=== PATIENT | female | born 1960 | race Caucasian/White ===

== ENCOUNTER 2018-09-30 15:11 | Observation (INO) | payer MEDICARE, OTHER ==
[~2018-09-30] VITALS: Ht 165.1 cm; Wt 90.9 kg
[~2018-09-30 15:11] MED LIST: ACET-2119 PO; CALC300T4 PO; CHOL10002 PO; FLUO20CA39 PO; FURO40TA4 PO; GABA-532 PO; HYDR-4353 PO; HYDR-4383 PO; LEVO175T7 PO; LISI40TA4 PO; METH1ADH4 TOP; MULT1TAB74 PO; NAPR500T6 PO; RISP4TAB2 PO
[2018-09-30 16:17] LABS: BASOPHILS # (AUTO) 0.1 X10'3 (0-0.2); BASOPHILS % (AUTO) 0.5 % (0-1); EOSINOPHILS # (AUTO) 0.1 X10'3 (0-0.9); EOSINOPHILS % (AUTO) 0.9 % (0-6); HEMATOCRIT 32.7 % (35.0-45.0); LYMPHOCYTES # (AUTO) 1.5 X10'3 (1.1-4.8); MEAN CORPUSCULAR HEMOGLOBIN 29.9 PG (27.0-31.0); MEAN CORPUSCULAR HGB CONC 33.7 g/dL (33.0-36.5); MEAN CORPUSCULAR VOLUME 88.7 FL (78-98); MEAN PLATELET VOLUME 7.2 FL (7.4-10.4); MONOCYTES # (AUTO) 1.1 X10'3 (0-0.9); MONOCYTES % (AUTO) 9.2 % (2-12); NEUTROPHILS # (AUTO) 9.6 X10'3 (1.8-7.7); NEUTROPHILS % (AUTO) 77.4 % (42-75); PLATELET COUNT 378 X10'3 (140-440); RED BLOOD COUNT 3.69 X10'6 (4.20-5.60); RED CELL DISTRIBUTION WIDTH 16.6 % (11.5-14.5); WHITE BLOOD COUNT 12.4 X10'3 (4.5-11.0)
[2018-09-30 16:37] LABS: ALANINE AMINOTRANSFERASE 29 U/L (12-78); ALBUMIN 2.9 G/DL (3.4-5.0); ALBUMIN/GLOBULIN RATIO 0.6 (1.1-1.5); ALKALINE PHOSPHATASE 196 IU/L (46-116); ANION GAP 7 (8-16); ASPARTATE AMINO TRANSFERASE 23 U/L (10-37); BILIRUBIN,TOTAL 0.5 MG/DL (0.1-1.0); BLOOD UREA NITROGEN 14 MG/DL (7-18); BUN/CREATININE RATIO 24.1 (6.6-38.0); CALCIUM 9.5 MG/DL (8.5-10.1); CHLORIDE 94 MMOL/L (99-107); CREATININE 0.58 MG/DL (0.40-0.90); GLUCOSE 119 MG/DL (70-104); POTASSIUM 3.3 MMOL/L (3.5-5.1); SODIUM 128 MMOL/L (135-145); TOTAL CARBON DIOXIDE 26.6 MMOL/L (24-32); TOTAL PROTEIN 7.6 G/DL (6.4-8.2); eGFR > 90 ML/MIN
[2018-09-30] MEDS ORDERED: potassium Cl oral solution 20 MEQ/15 ML PO ONE (16:55)
--- NOTE | 2018-09-30 17:16 | NUR ---
NURSING ADMIN AT [facility], LINDA, PHONE # [phone]
[2018-09-30 17:24] LABS: CLARITY,URINE SLIGHTLY CLOUDY (Clear); COLOR,URINE YELLOW (Yellow); GLUCOSE, URINE NEGATIVE (Neg); KETONES,URINE NEGATIVE (Neg); LEUKOCYTE ESTERASE ,URINE MODERATE (Neg); NITRITES, URINE NEGATIVE (Neg); OCCULT BLOOD,URINE NEGATIVE (Neg); PROTEIN,URINE NEGATIVE (Neg)
--- NOTE | 2018-09-30 17:25 | NUR ---
SPOKE WITH ANNIE TELEVISION TECHNICIAN AT FACILITY WHERE PT LIVES. INFORMED US THEY CANNOT TAKE PT BACK, BECAUSE SHE NEEDS HIGHER QUALITY OF CARE, THAT THIS FACILITY DOES NOT PROVIDE.
[2018-09-30 17:27] LABS: UA COLLECTION TYPE CLN CATCH MIDSTREAM
[2018-09-30 17:30] LABS: BACTERIA,URINE 1+ /HPF (Neg); RBC,URINE 0-2 /HPF (0-2)
[2018-09-30 17:31] LABS: MUCUS STRANDS FEW /LPF (Neg); SQUAMOUS EPITHELIAL CELL,UR MANY /LPF (FEW)
--- NOTE | 2018-09-30 17:35 | NUR ---
CALLED [facility]. LEFT MESSAGE. PT WAS DROPPED OFF HERE FOR REHAB
[2018-09-30] MEDS ORDERED: potassium Cl 40MEQ/NS 500ml 500 ML IV PRN ×2 (18:15)
[2018-09-30] MEDS ORDERED: mag hydrox/Alum hydrox/simeth 30ml oral suspension PO PRN (18:15)
[2018-09-30] MEDS ORDERED: potassium Cl 20 mEq SR tablet PO PRN ×2 (18:15)
[2018-09-30] MEDS ORDERED: ipratropium/albuterol 3ml nebule NEB PRN (18:15)
[2018-09-30] MEDS ORDERED: acetaminophen 325mg tablet PO PRN ×3 (18:15→19:00)
[2018-09-30] MEDS ORDERED: magnesium 4gm in 100ml NS 100 ML IV PRN (18:15)
[2018-09-30] MEDS ORDERED: HYDROcodone/acetaminophen 10/325mg tab PO PRN (18:15)
[2018-09-30] MEDS ORDERED: magnesium Cl slow-release 64mg tablet PO PRN (18:15)
[2018-09-30] MEDS ORDERED: magnesium hydroxide 30ml (MOM) UD suspension PO PRN (18:15)
[2018-09-30] MEDS ORDERED: magnesium 2GM in 50ml NS 50 ML IV PRN (18:15)
[2018-09-30] MEDS ORDERED: HYDROcodone/acetaminophen 5mg/325mg tablet PO PRN (18:15)
[2018-09-30] MEDS ORDERED: ondansetron/PF 4mg/2ml inj IV PRN (18:15)
[2018-09-30] MEDS ORDERED: nicotine prolacrilex 2mg gum BC PRN (18:55)
[2018-09-30] MEDS ORDERED: calcium carbonate 500mg chew tablet PO PRN (19:00)
[2018-09-30] MEDS ORDERED: CLOP75TA35 PO (19:35)
[2018-09-30] MEDS ORDERED: BUPR150T8 PO (19:47)
[2018-09-30] MEDS ORDERED: ATOR-2 PO (19:48)
[2018-09-30] MEDS ORDERED: HYDR25TA4 PO (19:51)
[2018-09-30] MEDS ORDERED: LISI-604 PO (19:51)
[2018-09-30] MEDS ORDERED: HYDR-4069 PO (19:51)
[2018-09-30] MEDS: naproxen 500mg tablet PO SCH (19:53)
[2018-09-30] MEDS: normal saline 1000ml 1,000 ML IV SCH (19:53)
[2018-09-30] MEDS: CefTRIAXone/D5W-Rocephin 1gm 50 ML IV SCH (19:54)
[2018-09-30 21:00] VITALS: BP 141/52
--- NOTE | 2018-09-30 21:00 | NUR ---
RECEIVED PATIENT FROM ER AND ASSUMED PATIENT CARE. TRANSFERRED FROM BED TO [facility] VIA SIDEBOARD. SKIN INTACT.
[2018-09-30] MEDS: gabapentin 300mg capsule PO SCH (21:41)
[2018-09-30] MEDS: risperiDONE 2mg tablet PO SCH (23:06)
[2018-10-01] MEDS: normal saline 1000ml 1,000 ML IV SCH (04:14)
[2018-10-01 05:53] LABS: BASOPHILS % (AUTO) 0.6 % (0-1); EOSINOPHILS # (AUTO) 0.2 X10'3 (0-0.9); EOSINOPHILS % (AUTO) 1.9 % (0-6); HEMOGLOBIN 10.3 g/dl (12.0-16.0); LYMPHOCYTES # (AUTO) 1.8 X10'3 (1.1-4.8); LYMPHOCYTES % (AUTO) 21.3 % (21-51); MEAN CORPUSCULAR HEMOGLOBIN 30.6 PG (27.0-31.0); MEAN CORPUSCULAR HGB CONC 34.4 g/dL (33.0-36.5); MEAN CORPUSCULAR VOLUME 88.7 FL (78-98); MEAN PLATELET VOLUME 7.2 FL (7.4-10.4); MONOCYTES # (AUTO) 0.9 X10'3 (0-0.9); MONOCYTES % (AUTO) 10.4 % (2-12); NEUTROPHILS # (AUTO) 5.5 X10'3 (1.8-7.7); NEUTROPHILS % (AUTO) 65.8 % (42-75); PLATELET COUNT 339 X10'3 (140-440); RED BLOOD COUNT 3.38 X10'6 (4.20-5.60); RED CELL DISTRIBUTION WIDTH 16.8 % (11.5-14.5); WHITE BLOOD COUNT 8.3 X10'3 (4.5-11.0)
[2018-10-01 06:00] VITALS: BP 138/65
[2018-10-01 06:05] LABS: ALANINE AMINOTRANSFERASE 25 U/L (12-78); ALBUMIN 2.6 G/DL (3.4-5.0); ALBUMIN/GLOBULIN RATIO 0.6 (1.1-1.5); ALKALINE PHOSPHATASE 166 IU/L (46-116); ANION GAP 6 (8-16); ASPARTATE AMINO TRANSFERASE 19 U/L (10-37); BILIRUBIN,TOTAL 0.5 MG/DL (0.1-1.0); BLOOD UREA NITROGEN 11 MG/DL (7-18); BUN/CREATININE RATIO 20.8 (6.6-38.0); CHLORIDE 97 MMOL/L (99-107); CHOL/HDL RATIO 1.9 (0.00-4.99); CHOLESTEROL 102 MG/DL (0-200); CREATININE 0.53 MG/DL (0.40-0.90); GLUCOSE 94 MG/DL (70-104); HDL CHOLESTEROL 53 MG/DL (35-60); LDL CHOLESTEROL 37 MG/DL (50-100); MAGNESIUM 1.7 MG/DL (1.5-2.4); POTASSIUM 4.1 MMOL/L (3.5-5.1); SODIUM 130 MMOL/L (135-145); TOTAL CARBON DIOXIDE 26.6 MMOL/L (24-32); TOTAL PROTEIN 6.8 G/DL (6.4-8.2); TRIGLYCERIDES 53 MG/DL (20-135); eGFR > 90 ML/MIN
--- NOTE | 2018-10-01 06:15 | NUR ---
Patient in room ORTHO 4011. I have received report from SAL Ramirez and had the opportunity to ask questions and assume patient care.
--- NOTE | 2018-10-01 06:27 | NUR ---
REPORT GIVEN TO AMBERLY HUANG
[2018-10-01] MEDS: levoTHYROXINE 100mcg tablet PO SCH (07:48)
[2018-10-01] MEDS: gabapentin 300mg capsule PO SCH ×3 (07:48→20:20)
[2018-10-01] MEDS: clopidogrel 75mg tablet PO SCH (07:48)
[2018-10-01] MEDS: FLUoxetine 20mg capsule PO SCH (07:48)
[2018-10-01] MEDS: naproxen 500mg tablet PO SCH ×2 (07:48→20:20)
[2018-10-01] MEDS: multivitamins, therapeutics tablet PO SCH (07:49)
[2018-10-01] MEDS: CefTRIAXone/D5W-Rocephin 1gm 50 ML IV SCH (07:49)
[2018-10-01] MEDS: lisinopril 10 MG tablet PO SCH (07:49)
[2018-10-01] MEDS: vitamin D (cholecalciferol) 1,000 unit tablet PO SCH (07:50)
[2018-10-01] MEDS: hydrALAZINE 25 MG tablet PO SCH (08:00)
[2018-10-01] MEDS ORDERED: HYDROchlorothiazide 25mg tablet PO SCH (08:00)
[2018-10-01] MEDS ORDERED: lisinopril 5mg tablet PO SCH (08:00)
[2018-10-01] MEDS: buPROPion 75mg tablet PO SCH ×2 (08:00→20:20)
[2018-10-01] MEDS: K and/or MAG REPLACEMENT MC SCH (08:00)
--- NOTE | 2018-10-01 08:45 | NUR ---
Pt refused new order medications: hydrochlorothiazide, wellbutrin, Hydrazaline. pt cited she is taking too many medications and too full from the first ordered med pass. Pt c/o not being able to eat breakfast because of too many meds. pt educated on risks/continues to refuse
--- NOTE | 2018-10-01 10:00 | NUR ---
Patient refuses to do incentive spirometry.
--- NOTE | 2018-10-01 11:16 | NUR ---
Student Medication Administration:For this medication-pass time frame 3537-7127, all medications were reviewed, administered and documented per hospital policy by Ashley Carlton. Student documentation: I have reviewed and agree with all interventions, assessments performed and documented by Ashley Carlton.
[2018-10-01] MEDS ORDERED: NICO2GUM29 BC (11:24)
--- NOTE | 2018-10-01 12:02 | NUR ---
Problems reprioritized. Patient report given, questions answered & plan of care reviewed with SAL Haskins.
[2018-10-01 18:00] VITALS: BP 148/59
--- NOTE | 2018-10-01 18:31 | NUR ---
RECEIVED REPORT FROM AMBERLY HUANG AND ASSUMED PATIENT CARE
[2018-10-01] MEDS: risperiDONE 2mg tablet PO SCH (20:20)
[2018-10-01] MEDS: lactobacillus rhamnosus 10,000 MMU CELLS/CAPSULE PO SCH (20:20)
[2018-10-01] MEDS ORDERED: atorvastatin 20mg tablet PO SCH (21:00)
[2018-10-01 22:00] VITALS: BP 124/48
[2018-10-02 05:48] LABS: BASOPHILS # (AUTO) 0.1 X10'3 (0-0.2); BASOPHILS % (AUTO) 0.6 % (0-1); EOSINOPHILS # (AUTO) 0.1 X10'3 (0-0.9); EOSINOPHILS % (AUTO) 1.4 % (0-6); HEMOGLOBIN 10.8 g/dl (12.0-16.0); LYMPHOCYTES # (AUTO) 1.5 X10'3 (1.1-4.8); LYMPHOCYTES % (AUTO) 15.3 % (21-51); MEAN CORPUSCULAR HEMOGLOBIN 29.8 PG (27.0-31.0); MEAN CORPUSCULAR HGB CONC 33.7 g/dL (33.0-36.5); MEAN CORPUSCULAR VOLUME 88.5 FL (78-98); MEAN PLATELET VOLUME 7.2 FL (7.4-10.4); MONOCYTES # (AUTO) 0.8 X10'3 (0-0.9); MONOCYTES % (AUTO) 8.1 % (2-12); NEUTROPHILS # (AUTO) 7.2 X10'3 (1.8-7.7); NEUTROPHILS % (AUTO) 74.6 % (42-75); PLATELET COUNT 384 X10'3 (140-440); RED BLOOD COUNT 3.61 X10'6 (4.20-5.60); RED CELL DISTRIBUTION WIDTH 16.6 % (11.5-14.5); WHITE BLOOD COUNT 9.6 X10'3 (4.5-11.0)
[2018-10-02 06:00] VITALS: BP 123/76
[2018-10-02 06:05] LABS: ALANINE AMINOTRANSFERASE 27 U/L (12-78); ALBUMIN 2.8 G/DL (3.4-5.0); ALBUMIN/GLOBULIN RATIO 0.6 (1.1-1.5); ALKALINE PHOSPHATASE 175 IU/L (46-116); ANION GAP 7 (8-16); ASPARTATE AMINO TRANSFERASE 25 U/L (10-37); BILIRUBIN,TOTAL 0.5 MG/DL (0.1-1.0); BLOOD UREA NITROGEN 10 MG/DL (7-18); BUN/CREATININE RATIO 20.4 (6.6-38.0); CALCIUM 9.3 MG/DL (8.5-10.1); CHLORIDE 100 MMOL/L (99-107); CREATININE 0.49 MG/DL (0.40-0.90); GLUCOSE 96 MG/DL (70-104); MAGNESIUM 1.9 MG/DL (1.5-2.4); SODIUM 134 MMOL/L (135-145); TOTAL CARBON DIOXIDE 26.9 MMOL/L (24-32); TOTAL PROTEIN 7.2 G/DL (6.4-8.2); eGFR > 90 ML/MIN
[2018-10-02 06:07] LABS: POTASSIUM 4.3 MMOL/L (3.5-5.1)
--- NOTE | 2018-10-02 06:16 | NUR ---
REPORT GIVEN TO AMBERLY HUANG
[2018-10-02] MEDS: CefTRIAXone/D5W-Rocephin 1gm 50 ML IV SCH (08:00)
[2018-10-02] MEDS: K and/or MAG REPLACEMENT MC SCH (08:00)
[2018-10-02] MEDS: hydrALAZINE 25 MG tablet PO SCH (09:21)
[2018-10-02] MEDS: naproxen 500mg tablet PO SCH (09:22)
[2018-10-02] MEDS: lactobacillus rhamnosus 10,000 MMU CELLS/CAPSULE PO SCH (09:22)
[2018-10-02] MEDS: clopidogrel 75mg tablet PO SCH (09:23)
[2018-10-02] MEDS: gabapentin 300mg capsule PO SCH (09:23)
[2018-10-02] MEDS: FLUoxetine 20mg capsule PO SCH (09:23)
[2018-10-02] MEDS: levoTHYROXINE 100mcg tablet PO SCH (09:23)
[2018-10-02] MEDS: buPROPion 75mg tablet PO SCH (09:24)
[2018-10-02] MEDS: multivitamins, therapeutics tablet PO SCH (09:24)
[2018-10-02 09:25] VITALS: BP_SYST 123
[2018-10-02] MEDS: lisinopril 10 MG tablet PO SCH (09:25)
[2018-10-02] MEDS: vitamin D (cholecalciferol) 1,000 unit tablet PO SCH (09:25)
== END 2018-10-02 11:30 | disposition short-term general hospital (02) ==
LOC: ER 15:11 → ORTHO 4S 18:14 → INTOOBSV 18:14 → CMPBEDREQ 20:26
PROVIDERS: ADMIT Family Medicine; ATTEND Family Medicine
DX: E87.1 Hypo-osmolality and hyponatremia (principal); E87.6 Hypokalemia; I69.392 Facial weakness following cerebral infarction; J44.9 Chronic obstructive pulmonary disease, unspecified; F31.9 Bipolar disorder, unspecified; M79.7 Fibromyalgia; E78.5 Hyperlipidemia, unspecified; E03.9 Hypothyroidism, unspecified; Z88.0 Allergy status to penicillin; Z90.49 Acquired absence of other specified parts of digestive tract
CPT/HCPCS: 36415; 80053; 80061; 81001; 83605; 83735; 84443; 85025; 87040; 87070; 92508; 92526; 92616; 94760; 96365; 96366; 97161; 97530; 99284; G0378; J0696; J7030; 99285

== ENCOUNTER 2019-11-11 05:33 | Observation (INO) | payer MEDICARE, OTHER ==
[2019-11-03 16:15] LABS: BASOPHILS # (AUTO) 0.1 X10'3 (0-0.2); BASOPHILS % (AUTO) 0.7 % (0-1); EOSINOPHILS # (AUTO) 0.2 X10'3 (0-0.9); EOSINOPHILS % (AUTO) 2.5 % (0-6); LYMPHOCYTES # (AUTO) 1.3 X10'3 (1.1-4.8); LYMPHOCYTES % (AUTO) 18.6 % (21-51); MEAN CORPUSCULAR HEMOGLOBIN 28.4 PG (27.0-31.0); MEAN CORPUSCULAR HGB CONC 32.9 g/dL (33.0-36.5); MEAN CORPUSCULAR VOLUME 86.1 FL (78-98); MEAN PLATELET VOLUME 8.1 FL (7.4-10.4); MONOCYTES # (AUTO) 0.7 X10'3 (0-0.9); MONOCYTES % (AUTO) 10.4 % (2-12); NEUTROPHILS # (AUTO) 4.8 X10'3 (1.8-7.7); NEUTROPHILS % (AUTO) 67.8 % (42-75); PRE OP HEMATOCRIT 38.3 % (35.0-45.0); PRE OP HEMOGLOBIN 12.6 g/dL (12.0-16.0); PRE OP PLATELET COUNT 326 X10'3 (140-440); RED BLOOD COUNT 4.45 X10'6 (4.20-5.60); RED CELL DISTRIBUTION WIDTH 18.4 % (11.5-14.5)
[2019-11-03 16:27] LABS: PRE OP INR 0.9 INR; PRE OP PROTIME 9.7 SECONDS (9.0-12.0)
[2019-11-03 16:28] LABS: ALBUMIN 2.8 G/DL (3.4-5.0); ALBUMIN/GLOBULIN RATIO 0.6 (1.1-1.5); ALKALINE PHOSPHATASE 258 IU/L (46-116); BLOOD UREA NITROGEN 12 MG/DL (7-18); BUN/CREATININE RATIO 18.8 (6.6-38.0); C-REACTIVE PROTEIN 2.53 MG/DL (0.0-0.5); CHLORIDE 105 MMOL/L (99-107); CREATININE 0.64 MG/DL (0.40-0.90); PRE OP ALT 51 U/L (30-65); PRE OP ANION GAP 8 (8-16); PRE OP AST 39 U/L (10-37); PRE OP BILIRUB, TOTAL 0.3 MG/DL (0.0-1.0); PRE OP GLUCOSE 87 MG/DL (70-104); PRE OP POTASSIUM 4.1 MMOL/L (3.4-5.1); PRE OP SODIUM 142 MMOL/L (135-145); TOTAL CARBON DIOXIDE 28.7 MMOL/L (24-32); TOTAL PROTEIN 7.5 G/DL (6.4-8.2); eGFR > 90 ML/MIN
[~2019-11-11] VITALS: Ht 162.6 cm; Wt 90.7 kg
[2019-11-11] VITALS (20 sets, daily range): BP systolic 124–152; BP diastolic 63–122
[~2019-11-11 05:33] MED LIST changes: -ACET-2119 PO; +ACET325T55 PO; +BUPR150T8 PO; -CALC300T4 PO; +CLOP75TA35 PO; +CYCL-1 PO; +DIPH25CA83 PO; +DIVA125T13 PO; +DOCU100C33 PO; -FURO40TA4 PO; +HCTZ25T PO; -HYDR-4353 PO; -HYDR-4383 PO; +HYDR50CA5 PO; +LISI-604 PO; -LISI40TA4 PO; +LORA-269 PO; -METH1ADH4 TOP; +MULT-620 PO; -MULT1TAB74 PO; -NAPR500T6 PO; +NYSPWD TP; +OLAN5TAB29 PO; +PER5325T PO; -RISP4TAB2 PO; +ceFAZolin 2gm in dextrose, iso 50 ML IV ONE; +famotidine 20mg tablet PO ONE; +ringers solution, lacted 1,000 ML IV SCH; +vancomycin 1,500 MG in NS 300ml IV soln IV ONE
[2019-11-11] MEDS ORDERED: famotidine 20mg tablet PO ONE (06:05)
[2019-11-11] MEDS ORDERED: ROPIVAcaine 0.5% (5mg/ml) 30ml vial ONE (06:46)
[2019-11-11] MEDS ORDERED: LIDOcaine 1% (10mg/ml) 2ml vial ONE (06:48)
[2019-11-11] MEDS ORDERED: sevoflurane 250ml liquid IH ONE (07:15)
[2019-11-11] MEDS ORDERED: midazolam 2 mg/2 ml injection ONE (07:17)
[2019-11-11] MEDS ORDERED: fentaNYL /PF 50mcg/ml 5ml ampule ONE (07:18)
[2019-11-11] MEDS ORDERED: BUPIVAcaine/PF 2.5 mg/ml (0.25%) 30ml vial ONE (07:42)
[2019-11-11] MEDS ORDERED: ketamine 50mg/5ml syringe ONE (08:46)
[2019-11-11] MEDS ORDERED: propofol inj 20 ML IV ONE (08:47)
[2019-11-11] MEDS ORDERED: ondansetron/PF 4mg/2ml inj ONE (08:47)
[2019-11-11] MEDS ORDERED: dexamethasone sod phosphate 4mg/ml inj. ONE (08:47)
[2019-11-11] MEDS ORDERED: LIDOcaine 2% (20mg/ml) 5ml vial ONE (08:47)
[2019-11-11] MEDS ORDERED: ringers solution, lacted 1,000 ML IV SCH (08:52)
[2019-11-11] MEDS ORDERED: meperidine/PF 25mg/ml syringe IV PRN ×2 (08:55)
[2019-11-11] MEDS ORDERED: proCHLORperazine 10 MG/2 ml inj IV PRN (08:55)
[2019-11-11] MEDS ORDERED: ondansetron/PF 4mg/2ml inj IV PRN ×2 (08:55→09:55)
[2019-11-11] MEDS ORDERED: morphine 2 MG/ML inj. syringe IV PRN (08:55)
[2019-11-11] MEDS ORDERED: acetaminophen 1,000mg/100ml IV 100 ML IV ONE (09:15)
[2019-11-11] MEDS ORDERED: ketorolac trometh. 30mg/ml inj. ONE (09:15)
--- NOTE | 2019-11-11 09:47 | NUR ---
Received from OR via BED, accompanied by Anesthesiologist DR MONTEJO and report given by Anesthesiologist. PT DROWSY, LEFT ARM IN SPLINT FROM FINGERS TO ABOVE ELBOW W/KARLENE WRAP COVERING, CDI, LEFT ARM IN SLING. FINGERS PWD, BAKERY SALES CLERK 1-2 SECONDS. Addendum: 11/11/19 at 1022 by Alisha Cadena RN Amended: Links added.
[2019-11-11] MEDS ORDERED: oxyCODONE/APAP 5-325mg tablet PO PRN (09:55)
[2019-11-11] MEDS ORDERED: acetaminophen 325mg tablet PO PRN (09:55)
[2019-11-11] MEDS ORDERED: magnesium hydroxide 30ml (MOM) UD suspension PO PRN (09:55)
[2019-11-11] MEDS ORDERED: HYDROmorphone 1 mg/ml syringe IV PRN (09:55)
[2019-11-11] MEDS ORDERED: oxyCODONE IR 5mg (immed. release) tablet PO PRN ×2 (09:55)
[2019-11-11] MEDS ORDERED: bisacodyl 10mg suppository rectal RC PRN (09:55)
[2019-11-11] MEDS ORDERED: hydrOXYzine 25 MG tablet PO PRN (09:55)
[2019-11-11] MEDS: meperidine/PF 25mg/ml syringe IV PRN ×3 (09:55→10:54)
[2019-11-11] MEDS ORDERED: HYDROmorphone inj. 0.5 MG/0.5 ML DISP.SYRIN IV PRN (09:55)
[2019-11-11] MEDS ORDERED: LORazepam 1 MG tablet PO PRN ×2 (09:55)
[2019-11-11] MEDS ORDERED: diphenhydrAMINE 25mg capsule PO PRN ×2 (09:55)
[2019-11-11] MEDS: morphine 4 MG/ML inj SYRINge IV PRN ×2 (09:56→10:08)
[2019-11-11] MEDS ORDERED: LORazepam 0.5 MG tablet PO PRN (10:33)
--- NOTE | 2019-11-11 11:17 | NUR ---
Report called to receiving nurse. Transferred via BED, WHEELCHAIR, GLASSES, DUFFLE BAG, 1 BAG OF PERSONAL Belongings SENT W/PT TO ROOM 4011B, BLL, CALL LIGHT GIVEN, SIDE RAILS UP X 2, RECEIVING RN AT BEDSIDE TO RECEIVE PT. Special Issues communicated to receiving nurse. YES. Addendum: 11/11/19 at 1122 by Alisha Cadena RN Amended: Links added.
[2019-11-11] MEDS: gabapentin 300mg capsule PO SCH ×3 (12:04→21:36)
[2019-11-11] MEDS: potassium cl 20mEq in 1/2 NS 1,000 ML IV SCH ×4 (14:17→23:46)
[2019-11-11] MEDS: acetaminophen 325mg tablet PO SCH ×2 (14:18→21:36)
[2019-11-11] MEDS: ceFAZolin 1GM/D5W- ADD-VANTAGE 50 ML IV SCH (15:53)
[2019-11-11] MEDS: cyclobenzaprine 10mg tablet PO SCH (15:57)
--- NOTE | 2019-11-11 18:20 | NUR ---
RECEIVED REPORT FROM SHIRLEY HUANG AND ASSUMED PATIENT CARE
--- NOTE | 2019-11-11 18:36 | NUR ---
Problems reprioritized. Patient report given, questions answered & plan of care reviewed with SAL Ramirez.
[2019-11-11] MEDS ORDERED: vancomycin/NS 1 GM ADD-VANTAGE 250 ML IV SCH (20:00)
[2019-11-11] MEDS: nystatin 15 GM powder TP SCH (20:00)
[2019-11-11] MEDS ORDERED: sennosides 8.6mg tablet PO SCH (21:00)
[2019-11-11] MEDS ORDERED: OLANZapine 5mg rapidly disint. tablet PO SCH (21:00)
[2019-11-11] MEDS ORDERED: diphenhydrAMINE 25mg capsule PO SCH (21:00)
[2019-11-11] MEDS: divalproex sod 125mg tablet.DR PO SCH (21:37)
[2019-11-12] MEDS: cyclobenzaprine 10mg tablet PO SCH ×2 (00:39→08:18)
[2019-11-12] MEDS: ceFAZolin 1GM/D5W- ADD-VANTAGE 50 ML IV SCH (00:39)
[2019-11-12] MEDS: acetaminophen 325mg tablet PO SCH ×2 (00:40→08:17)
[2019-11-12 02:00] VITALS: BP 148/78
[2019-11-12 06:00] VITALS: BP 148/78
--- NOTE | 2019-11-12 06:30 | NUR ---
Patient in room ORTHO 4011. I have received report from JACQUELINE HUANG and had the opportunity to ask questions and assume patient care.
[2019-11-12 07:53] LABS: BASOPHILS % (AUTO) 0.5 % (0-1); EOSINOPHILS % (AUTO) 0.5 % (0-6); HEMOGLOBIN 10.5 g/dl (12.0-16.0); LYMPHOCYTES # (AUTO) 1.5 X10'3 (1.1-4.8); LYMPHOCYTES % (AUTO) 18.1 % (21-51); MEAN CORPUSCULAR HEMOGLOBIN 28.9 PG (27.0-31.0); MEAN CORPUSCULAR VOLUME 87.6 FL (78-98); MEAN PLATELET VOLUME 9.2 FL (7.4-10.4); MONOCYTES # (AUTO) 0.9 X10'3 (0-0.9); MONOCYTES % (AUTO) 10.9 % (2-12); NEUTROPHILS # (AUTO) 5.9 X10'3 (1.8-7.7); PLATELET COUNT 253 X10'3 (140-440); RED BLOOD COUNT 3.65 X10'6 (4.20-5.60); RED CELL DISTRIBUTION WIDTH 17.5 % (11.5-14.5); WHITE BLOOD COUNT 8.5 X10'3 (4.5-11.0)
[2019-11-12] MEDS ORDERED: clopidogrel 75mg tablet PO SCH (08:00)
[2019-11-12] MEDS ORDERED: HYDROchlorothiazide 25mg tablet PO SCH (08:00)
[2019-11-12] MEDS ORDERED: levoTHYROXINE 100mcg tablet PO SCH (08:00)
[2019-11-12] MEDS ORDERED: lisinopril 5mg tablet PO SCH (08:00)
[2019-11-12] MEDS ORDERED: FLUoxetine 20mg capsule PO SCH (08:00)
[2019-11-12] MEDS ORDERED: buPROPion SR 150mg tablet PO SCH (08:00)
[2019-11-12 08:05] LABS: ANION GAP 5 (8-16); CHLORIDE 108 MMOL/L (99-107); POTASSIUM 4.5 MMOL/L (3.5-5.1); SODIUM 142 MMOL/L (135-145); TOTAL CARBON DIOXIDE 29.3 MMOL/L (24-32)
[2019-11-12] MEDS: divalproex sod 125mg tablet.DR PO SCH (08:09)
[2019-11-12] MEDS: gabapentin 300mg capsule PO SCH ×2 (08:11→12:13)
[2019-11-12] MEDS: nystatin 15 GM powder TP SCH (08:18)
[2019-11-12 10:04] VITALS: BP 143/82
--- NOTE | 2019-11-12 14:54 | NUR ---
PT DISCHARGED IN STABLE CONDITION. LEFT FACILITY FOR [facility]. FOLLOW UP INSTRUCTIONS GIVEN, ALL QUESTIONS ANSWERED. IV DC CANULA INTACT. ALL BELONGINGS IN HAND INCLUDING W/C AND SLING. Addendum: 11/12/19 at 1455 by Carolyne Melendez RN Amended: Links added.
[2019-11-13] MEDS ORDERED: acetaminophen 325mg tablet PO PRN (09:55)
--- NOTE | 2019-11-18 12:39 | NUR ---
Case Management DC follow up: spoke to pt Margarita QUISPE at [facility] living via telephone. s/p:FLORECITA palencia. Reports: "doing good so far". Denies for pt: acute/continuous/worsening cp, SOB, resp distress, vertigo, syncope,weakness, blurry vision, N/V, HAMILTON, emergent general pain, abd tenderness/distension, fever. l arm still wrapped, digits exposed, no swelling, redness, warmth. Verbalizes understanding of s/s that warrant 9-11/ER visit for evaluation. Pt resumes current Rx, taking as ordered, no ase r/t polypharmacy. Acknowledges need to schedule/keep follow up appts w/ PCP/Dr Ricardo at facility regular basis. Dr Rosales set for next week. Needs met, questions answered at DC, no further questions at this time.
== END 2019-11-12 14:08 | disposition home or self-care (01) ==
LOC: PAS 05:33 → ORTHO 4S 09:58
PROVIDERS: ADMIT Orthopaedic Surgery; ATTEND Orthopaedic Surgery
DX: Z03.818 Encounter for observation for suspected exposure to other biological agents ruled out (principal); T84.113A Breakdown (mechanical) of internal fixation device of bone of left forearm, initial encounter; S52.232 Displaced oblique fracture of shaft of left ulna; F32.9 Major depressive disorder, single episode, unspecified; F41.9 Anxiety disorder, unspecified; I10 Essential (primary) hypertension; K21.9 Gastro-esophageal reflux disease without esophagitis; M79.7 Fibromyalgia; J44.9 Chronic obstructive pulmonary disease, unspecified; G40.909 Epilepsy, unspecified, not intractable, without status epilepticus; Z87.891 Personal history of nicotine dependence; Z86.73 Personal history of transient ischemic attack (TIA), and cerebral infarction without residual deficits; Z79.899 Other long term (current) drug therapy; X58.XXXA Exposure to other specified factors, initial encounter; Y93.89 Activity, other specified; Y92.89 Other specified places as the place of occurrence of the external cause
CPT/HCPCS: 25400; 36415; 80051; 80053; 82948; 85025; 85610; 85651; 85730; 86140; 87070; 87075; 87077; 87102; 87186; 93005; 96365; 96366; 96367; 96375; 96376; C1713; C1762; G0378; J0131; J0690; J1100; J1885; J2001; J2175; J2250; J2270; J2405; J2704; J3010; J3370; J3490; J7040; J7120; Q0163; U0003; A4215; A4618; A6449; A7000; J2795; J3480

== ENCOUNTER 2019-12-04 10:01 | Outpatient (CLI) | payer MEDICARE, OTHER ==
[~2019-12-04 10:01] MED LIST changes: -ceFAZolin 2gm in dextrose, iso 50 ML IV ONE; -famotidine 20mg tablet PO ONE; -ringers solution, lacted 1,000 ML IV SCH; -vancomycin 1,500 MG in NS 300ml IV soln IV ONE
== END 2019-12-04 23:59 | disposition home or self-care (01) ==
LOC: 64 CT 10:01
PROVIDERS: ATTEND Orthopaedic Surgery
DX: S32.512K Fracture of superior rim of left pubis, subsequent encounter for fracture with nonunion (principal); S32.301A Unspecified fracture of right ilium, initial encounter for closed fracture; M47.817 Spondylosis without myelopathy or radiculopathy, lumbosacral region; T84.113 Breakdown (mechanical) of internal fixation device of bone of left forearm; X58.XXXD Exposure to other specified factors, subsequent encounter; X58.XXXA Exposure to other specified factors, initial encounter; Y93.89 Activity, other specified; Y92.89 Other specified places as the place of occurrence of the external cause; Y99.8 Other external cause status; Z72.0 Tobacco use
CPT/HCPCS: 72192

== ENCOUNTER 2020-06-24 16:53 | Emergency (ER) | payer MEDICARE, OTHER ==
[~2020-06-24] VITALS: Ht 162.6 cm; Wt 82.8 kg
[~2020-06-24 16:53] MED LIST changes: -ACET325T55 PO; +BUPR-344 PO; -BUPR150T8 PO; -CHOL10002 PO; +CHOL100046 PO; +CLOP75TA34 PO; -CLOP75TA35 PO; -HCTZ25T PO; -HYDR50CA5 PO; -LISI-604 PO; +METO25TA6 PO; -MULT-620 PO; +MYL80T PO; -NYSPWD TP; +OLAN5TAB26 PO; -OLAN5TAB29 PO; +TEMA15CA5 PO
[2020-06-24 17:24] LABS: BASOPHILS % (AUTO) 0.5 % (0-1); EOSINOPHILS # (AUTO) 0.2 X10'3 (0-0.9); EOSINOPHILS % (AUTO) 2.8 % (0-6); HEMATOCRIT 34.3 % (35.0-45.0); HEMOGLOBIN 11.5 g/dl (12.0-16.0); LYMPHOCYTES # (AUTO) 1.6 X10'3 (1.1-4.8); LYMPHOCYTES % (AUTO) 30.4 % (21-51); MEAN CORPUSCULAR HEMOGLOBIN 30.3 PG (27.0-31.0); MEAN CORPUSCULAR HGB CONC 33.6 g/dL (33.0-36.5); MEAN CORPUSCULAR VOLUME 90.3 FL (78-98); MEAN PLATELET VOLUME 8.8 FL (7.4-10.4); MONOCYTES # (AUTO) 0.5 X10'3 (0-0.9); MONOCYTES % (AUTO) 9.1 % (2-12); NEUTROPHILS % (AUTO) 57.2 % (42-75); PLATELET COUNT 230 X10'3 (140-440); RED CELL DISTRIBUTION WIDTH 17.3 % (11.5-14.5); WHITE BLOOD COUNT 5.3 X10'3 (4.5-11.0)
[2020-06-24 17:28] LABS: CLARITY,URINE TURBID (Clear); COLOR,URINE YELLOW (Yellow); GLUCOSE, URINE NEGATIVE (Neg); KETONES,URINE 15 mg/dl (Neg); LEUKOCYTE ESTERASE ,URINE MODERATE (Neg); NITRITES, URINE NEGATIVE (Neg); OCCULT BLOOD,URINE LARGE (Neg); PROTEIN,URINE >=300 mg/dl (Neg)
[2020-06-24 17:33] LABS: UA COLLECTION TYPE STRAIGHT CATH
[2020-06-24 17:36] LABS: WBC,URINE TNTC /HPF (0-4)
[2020-06-24 17:37] LABS: BACTERIA,URINE 2+ /HPF (Neg); SQUAMOUS EPITHELIAL CELL,UR FEW /LPF (FEW)
[2020-06-24 17:40] LABS: ALANINE AMINOTRANSFERASE 20 U/L (12-78); ALBUMIN 2.8 G/DL (3.4-5.0); ALBUMIN/GLOBULIN RATIO 0.5 (1.1-1.5); ALKALINE PHOSPHATASE 210 IU/L (46-116); ANION GAP 13 (8-16); ASPARTATE AMINO TRANSFERASE 23 U/L (10-37); BILIRUBIN,TOTAL 0.6 MG/DL (0.1-1.0); BLOOD UREA NITROGEN 19 MG/DL (7-18); BUN/CREATININE RATIO 32.2 (6.6-38.0); CALCIUM 9.6 MG/DL (8.5-10.1); CHLORIDE 103 MMOL/L (99-107); CREATININE 0.59 MG/DL (0.40-0.90); GLUCOSE 80 MG/DL (70-104); POTASSIUM 3.5 MMOL/L (3.5-5.1); SODIUM 140 MMOL/L (135-145); TOTAL CARBON DIOXIDE 24.5 MMOL/L (24-32); TOTAL PROTEIN 8.4 G/DL (6.4-8.2); eGFR > 90 ML/MIN
[2020-06-24] MEDS ORDERED: CefTRIAXone 2gm/D5W 50ml BAG 50 ML IV ONE (17:45)
[2020-06-24 17:48] LABS: URINE AMPHETAMINE SCREEN NEGATIVE (Neg); URINE BARBITUATE SCREEN NEGATIVE (Neg); URINE BENZODIAZEPINES SCREEN POSITIVE (Neg); URINE CANNABINOID SCREEN NEGATIVE (Neg); URINE COCAINE SCREEN NEGATIVE (Neg); URINE METHADONE SCREEN NEGATIVE (Neg); URINE OPIATE SCREEN NEGATIVE (Neg); URINE PHENCYCLIDINE SCREEN NEGATIVE (Neg)
[2020-06-24 17:48] LABS: LIPASE 80 U/L (73-393)
[2020-06-24] MEDS ORDERED: normal saline 1000ml 1,000 ML IV ONE (18:05)
[2020-06-24] MEDS ORDERED: BACDS PO (18:06)
--- NOTE | 2020-06-24 18:29 | NUR ---
DURING STAY PT HAS BEEN CALM AND SLEEPING INTERMITENTLY WITH NO OUTBURSTS.
--- NOTE | 2020-06-24 18:30 | NUR ---
CINDY LUCIANO WAS CALLED AND CHRISS CARGO WILL BE HERE IN AN HR TO PICK HER UP
[2020-06-24 19:01] VITALS: BP 128/72
--- NOTE | 2020-06-24 19:06 | NUR ---
[employer] came and package pick up pt, report was called to jovany gordon
== END 2020-06-24 19:06 | disposition home or self-care (01) ==
LOC: ER 16:55
DX: N39.0 Urinary tract infection, site not specified (principal); K56.41 Fecal impaction; R11.2 Nausea with vomiting, unspecified; R45.1 Restlessness and agitation; F29 Unspecified psychosis not due to a substance or known physiological condition; I10 Essential (primary) hypertension; E03.9 Hypothyroidism, unspecified; F31.9 Bipolar disorder, unspecified; Z86.73 Personal history of transient ischemic attack (TIA), and cerebral infarction without residual deficits; Z88.0 Allergy status to penicillin; Z88.5 Allergy status to narcotic agent; Z88.8 Allergy status to other drugs, medicaments and biological substances; Z79.2 Long term (current) use of antibiotics; Z79.899 Other long term (current) drug therapy
CPT/HCPCS: 36415; 80053; 80305; 81001; 83690; 84443; 85025; 87077; 87088; 87186; 96361; 96365; 99284; J0696; J7030

== ENCOUNTER 2020-10-27 08:02 | Emergency (ER) | payer MEDICARE, OTHER ==
[~2020-10-27] VITALS: Ht 162.6 cm; Wt 95.0 kg
[~2020-10-27 08:02] MED LIST changes: +LOP25T PO; -METO25TA6 PO; -MYL80T PO; +SIME80TA15 PO
[2020-10-27 09:03] VITALS: BP 113/49
== END 2020-10-27 10:58 | disposition home or self-care (01) ==
LOC: ER 08:02
DX: K59.03 Drug induced constipation (principal); K56.7 Ileus, unspecified; E03.9 Hypothyroidism, unspecified; F31.9 Bipolar disorder, unspecified; F03.90 Unspecified dementia, unspecified severity, without behavioral disturbance, psychotic disturbance, mood disturbance, and anxiety; Z88.0 Allergy status to penicillin; Z88.5 Allergy status to narcotic agent; Z88.8 Allergy status to other drugs, medicaments and biological substances; Z79.899 Other long term (current) drug therapy
CPT/HCPCS: 74176; 99284

== ENCOUNTER 2020-11-20 11:25 | Inpatient (IN) | payer MEDICARE, OTHER ==
[~2020-11-20] VITALS: Ht 162.6 cm; Wt 96.3 kg
[2020-11-20] MEDS ORDERED: normal saline 1000ML IV soln IV ONE (12:20)
[2020-11-20 12:33] LABS: URINE HCG NEGATIVE (NEG)
[2020-11-20 12:40] LABS: BASOPHILS % (AUTO) 0.5 % (0-1); EOSINOPHILS # (AUTO) 0.3 X10'3 (0-0.9); EOSINOPHILS % (AUTO) 4.9 % (0-6); HEMATOCRIT 23.4 % (35.0-45.0); LYMPHOCYTES # (AUTO) 0.8 X10'3 (1.1-4.8); LYMPHOCYTES % (AUTO) 11.9 % (21-51); MEAN CORPUSCULAR HEMOGLOBIN 31.1 PG (27.0-31.0); MEAN CORPUSCULAR HGB CONC 34.1 g/dL (33.0-36.5); MEAN CORPUSCULAR VOLUME 91.4 FL (78-98); MEAN PLATELET VOLUME 8.6 FL (7.4-10.4); MONOCYTES # (AUTO) 0.6 X10'3 (0-0.9); MONOCYTES % (AUTO) 8.7 % (2-12); NEUTROPHILS # (AUTO) 5.1 X10'3 (1.8-7.7); PLATELET COUNT 177 X10'3 (140-440); RED BLOOD COUNT 2.56 X10'6 (4.20-5.60); RED CELL DISTRIBUTION WIDTH 18.1 % (11.5-14.5); WHITE BLOOD COUNT 6.9 X10'3 (4.5-11.0)
[2020-11-20 12:42] LABS: CLARITY,URINE TURBID (Clear); COLOR,URINE YELLOW (Yellow); GLUCOSE, URINE NEGATIVE (Neg); KETONES,URINE 15 mg/dl (Neg); LEUKOCYTE ESTERASE ,URINE NEGATIVE (Neg); NITRITES, URINE NEGATIVE (Neg); OCCULT BLOOD,URINE NEGATIVE (Neg); PH,URINE 5.5 (4.8-8.0); PROTEIN,URINE >=300 mg/dl (Neg)
[2020-11-20 12:43] LABS: PARTIAL THROMBOPLASTIN TIME 28 SECONDS (22-32)
[2020-11-20 12:45] LABS: ALANINE AMINOTRANSFERASE 31 U/L (12-78); ALBUMIN 2.3 G/DL (3.4-5.0); ALBUMIN/GLOBULIN RATIO 0.3 (1.1-1.5); ALKALINE PHOSPHATASE 179 IU/L (46-116); ANION GAP 9 (8-16); ASPARTATE AMINO TRANSFERASE 39 U/L (10-37); BILIRUBIN,TOTAL 0.5 MG/DL (0.1-1.0); BLOOD UREA NITROGEN 18 MG/DL (7-18); BUN/CREATININE RATIO 26.5 (6.6-38.0); CALCIUM 9.9 MG/DL (8.5-10.1); CHLORIDE 100 MMOL/L (99-107); CREATININE 0.68 MG/DL (0.40-0.90); GLUCOSE 115 MG/DL (70-104); POTASSIUM 3.2 MMOL/L (3.5-5.1); SODIUM 140 MMOL/L (135-145); TOTAL CARBON DIOXIDE 30.8 MMOL/L (24-32); TOTAL PROTEIN 9.8 G/DL (6.4-8.2); eGFR 88 ML/MIN
[2020-11-20 12:45] LABS: UA COLLECTION TYPE STRAIGHT CATH
[2020-11-20 12:52] LABS: LIPASE < 50 U/L (73-393)
[2020-11-20 12:59] LABS: AMORPHOUS URATES 3+; MUCUS STRANDS MANY /LPF (Neg); SQUAMOUS EPITHELIAL CELL,UR MODERATE /LPF (FEW)
[2020-11-20 13:00] LABS: FINE GRANULAR CAST 0-3 /LPF (NEGATIVE)
[2020-11-20 13:02] LABS: CAL OXALATE CRYSTALS 2+ /HPF (NEGATIVE)
[2020-11-20 13:03] LABS: BACTERIA,URINE 2+ /HPF (Neg)
[2020-11-20] MEDS ORDERED: acetaminophen 325mg tablet PO PRN (14:40)
[2020-11-20] MEDS ORDERED: magnesium 4gm in 100ml NS 100 ML IV PRN (14:40)
[2020-11-20] MEDS ORDERED: potassium Cl 40MEQ/1/2NS 520ml 520 ML IV PRN (14:40)
[2020-11-20] MEDS ORDERED: ondansetron/PF 4mg/2ml inj IV PRN (14:40)
[2020-11-20] MEDS ORDERED: magnesium 2GM in 50ml NS 50 ML IV PRN (14:40)
[2020-11-20] MEDS ORDERED: potassium Cl 20 mEq SR tablet PO PRN ×2 (14:40)
[2020-11-20] MEDS ORDERED: magnesium Cl slow-release 64mg tablet PO PRN (14:40)
[2020-11-20] MEDS ORDERED: ZIPR80CA2 PO (16:22)
[2020-11-20] MEDS ORDERED: MELA5TAB12 PO (16:22)
[2020-11-20] MEDS ORDERED: DESV50TA10 PO (16:22)
[2020-11-20] MEDS ORDERED: CLON-528 PO (16:22)
[2020-11-20] MEDS ORDERED: LEVO112C4 (16:22)
--- NOTE | 2020-11-20 16:36 | NUR ---
PAGER ID: [phone] MESSAGE: Diane [phone] - mushtaq Good [id number] CT recommends a rectal tube for decompression and ED reported multiple episodes of diarrhea. Would you like us to place one?
--- NOTE | 2020-11-20 16:38 | NUR ---
Patient in room ED 10. I have received report from Ela HUANG in ED and had the opportunity to ask questions and assume patient care.
[2020-11-20 17:00] VITALS: BP 119/71
--- NOTE | 2020-11-20 17:53 | NUR ---
Paged Dr. Hartman regarding old healing Staph wound on right forearm PAGER ID: [phone] MESSAGE: [facility] 3015B, FlorentinoOsiris has old healing Staph wound to right forearm, 11cm by 5cm, picture taken, new dressing applied, asking for wound consult. please advise, Nalini HUANG [phone]
--- NOTE | 2020-11-20 18:30 | NUR ---
Problems reprioritized. Patient report given, questions answered & plan of care reviewed with Maci RN at bedside.
--- NOTE | 2020-11-20 18:32 | NUR ---
Problems reprioritized. Patient report given, questions answered & plan of care reviewed with Maci.
[2020-11-20] MEDS: K and/or MAG REPLACEMENT MC SCH (20:00)
--- NOTE | 2020-11-20 21:30 | NUR ---
Dr. Hartman in to see pt stating she thought pt would benefit from an NGT. Nurse inquired about pt needing IV fluids d/t her being NPO and Med rec needing to be addressed. stating that she will be putting orders in. Will await orders, pt at this time remains NPO. Addendum: 11/20/20 at 2342 by Maci Cannon RN Amended: Links added.
[2020-11-20 22:00] VITALS: BP 139/71
--- NOTE | 2020-11-20 23:35 | NUR ---
No new orders from Dr. Hartman. Addendum: 11/20/20 at 2342 by Maci Cannon RN Amended: Links added.
[2020-11-21] MEDS: potassium Cl 40MEQ/1/2NS 520ml 520 ML IV PRN (00:38)
--- NOTE | 2020-11-21 01:00 | NUR ---
Yann shift hospitalist Dr. Nguyen made aware Dr. Hartman had not place orders on pt in regards to IVF with NPO, med rec and NGT. Dr Nguyen made aware of pts admission reason. declined to give IVF at this time, orders for lasix x1 dose and neb treatment and day shift hospitalist will need to address further orders. Addendum: 11/21/20 at 0107 by Maci Cannon RN Amended: Links added. Addendum: 11/21/20 at 0115 by Maci Cannon RN [facility] shift hospitalist Dr. Nguyen made aware Dr. Hartman had not place orders on pt in regards to IVF with NPO, med rec and NGT. Dr Nguyen made aware of pts admission reason. declined to give IVF at this time, orders for lasix x1 dose and neb treatment and day shift hospitalist will need to address further orders.dr also made aware that pt has yet to produce urine, had UA w/2+ bacteria, did not want to order f/c, still wanted pt to get lasix.
[2020-11-21] MEDS ORDERED: furosemide 20 MG/2 ML vial IV ONE (01:10)
[2020-11-21] MEDS ORDERED: ipratropium/albuterol 3ml nebule NEB PRN (01:20)
[2020-11-21 02:00] VITALS: BP 140/73
[2020-11-21 06:00] VITALS: BP 123/62
--- NOTE | 2020-11-21 06:15 | NUR ---
Patient in room PCU 3017. I have received report from Maci HUANG at bedside and had the opportunity to ask questions and assume patient care.
--- NOTE | 2020-11-21 06:31 | NUR ---
Problems reprioritized. Patient report given, questions answered & plan of care reviewed with Nalini HUANG. Addendum: 11/21/20 at 0632 by Maci Cannon RN Amended: Links added.
--- NOTE | 2020-11-21 06:42 | NUR ---
Patient in room PCU 3017. I have received report from SAL Lux and had the opportunity to ask questions and assume patient care.
[2020-11-21 07:15] LABS: BASOPHILS % (AUTO) 0.3 % (0-1); EOSINOPHILS # (AUTO) 0.5 X10'3 (0-0.9); EOSINOPHILS % (AUTO) 9.9 % (0-6); HEMATOCRIT 25.3 % (35.0-45.0); HEMOGLOBIN 8.6 g/dl (12.0-16.0); LYMPHOCYTES # (AUTO) 0.9 X10'3 (1.1-4.8); LYMPHOCYTES % (AUTO) 17.4 % (21-51); MEAN CORPUSCULAR HEMOGLOBIN 30.9 PG (27.0-31.0); MEAN CORPUSCULAR HGB CONC 33.9 g/dL (33.0-36.5); MEAN CORPUSCULAR VOLUME 91.2 FL (78-98); MEAN PLATELET VOLUME 8.8 FL (7.4-10.4); MONOCYTES # (AUTO) 0.5 X10'3 (0-0.9); MONOCYTES % (AUTO) 9.6 % (2-12); NEUTROPHILS # (AUTO) 3.4 X10'3 (1.8-7.7); NEUTROPHILS % (AUTO) 62.8 % (42-75); PLATELET COUNT 148 X10'3 (140-440); RED BLOOD COUNT 2.77 X10'6 (4.20-5.60); RED CELL DISTRIBUTION WIDTH 17.8 % (11.5-14.5); WHITE BLOOD COUNT 5.4 X10'3 (4.5-11.0)
[2020-11-21 07:36] LABS: ALBUMIN 2.1 G/DL (3.4-5.0); ANION GAP 9 (8-16); BLOOD UREA NITROGEN 17 MG/DL (7-18); BUN/CREATININE RATIO 29.8 (6.6-38.0); CHLORIDE 104 MMOL/L (99-107); CREATININE 0.57 MG/DL (0.40-0.90); GLUCOSE 87 MG/DL (70-104); MAGNESIUM 1.7 MG/DL (1.5-2.4); POTASSIUM 3.6 MMOL/L (3.5-5.1); SODIUM 143 MMOL/L (135-145); eGFR > 90 ML/MIN
[2020-11-21] MEDS: K and/or MAG REPLACEMENT MC SCH ×2 (08:00→20:00)
[2020-11-21 09:06] LABS: ANISOCYTOSIS 1+; PLATELET ESTIMATE NORMAL; POLYCHROMASIA 1+; ROULEAUX 2+
[2020-11-21 11:00] VITALS: BP 127/57
[2020-11-21] MEDS ORDERED: SIME80TA15 PO (14:07)
[2020-11-21] MEDS ORDERED: METO25TA6 PO (14:07)
[2020-11-21 15:00] VITALS: BP 130/63
--- NOTE | 2020-11-21 16:41 | NUR ---
Paged Dr. Hartman regarding ineffective pain regimen. Requesting intervention PAGER ID: [phone] MESSAGE: U [id number], Florentino Newell, Tylenol ineffective for abdominal pain, requesting stronger pain medication. Please advise. Thank you, SAL Regalado, U [phone]
[2020-11-21] MEDS ORDERED: ketorolac trometh. 30mg/ml inj. IV ONE (16:45)
--- NOTE | 2020-11-21 17:40 | NUR ---
PAGER ID: [phone] MESSAGE: [facility] 12B Manolo Campos has david in place yet there is no order for the david. In order to keep david in Need order for david. Please advise. Nalini HUANG [phone] Addendum: 11/21/20 at 1811 by Nilay Gutiérrez RN error in documentation. please disregard
[2020-11-21 18:00] VITALS: BP 120/60
--- NOTE | 2020-11-21 18:05 | NUR ---
Patient in room PCU 3017. I have received report from Nalini HUANG and had the opportunity to ask questions and assume patient care.
[2020-11-21] MEDS ORDERED: clonazePAM 0.5mg tablet PO PRN (19:10)
--- NOTE | 2020-11-21 19:16 | NUR ---
Spoke with Dr. Wheat re: home meds. Continuing home meds per MD orders.
[2020-11-21] MEDS: cyclobenzaprine 10mg tablet PO PRN (19:32)
[2020-11-21] MEDS: divalproex sod 125mg tablet.DR PO SCH (20:48)
[2020-11-21] MEDS: venlafaxine 25mg tablet PO SCH (20:48)
[2020-11-21] MEDS: gabapentin 300mg capsule PO SCH (20:48)
[2020-11-21] MEDS: ziprasidone 20mg capsule PO SCH (20:48)
[2020-11-21 22:00] VITALS: BP 149/72
[2020-11-22] MEDS ORDERED: ketorolac tromethamine 15mg/ml inj. IV ONE (05:05)
[2020-11-22] MEDS: cyclobenzaprine 10mg tablet PO PRN (05:14)
--- NOTE | 2020-11-22 06:15 | NUR ---
Patient in room PCU 3017. I have received report from Kylah HUANG at bedside and had the opportunity to ask questions and assume patient care.
--- NOTE | 2020-11-22 06:18 | NUR ---
Problems reprioritized. Patient report given, questions answered & plan of care reviewed with Nalini HUANG.
[2020-11-22 07:00] VITALS: BP 128/65
[2020-11-22] MEDS: ziprasidone 20mg capsule PO SCH ×2 (07:36→20:32)
[2020-11-22] MEDS: gabapentin 300mg capsule PO SCH ×4 (07:36→20:32)
[2020-11-22] MEDS: venlafaxine 25mg tablet PO SCH ×3 (07:36→20:35)
[2020-11-22] MEDS: divalproex sod 125mg tablet.DR PO SCH ×3 (07:37→20:35)
[2020-11-22 07:39] LABS: BASOPHILS % (AUTO) 0.6 % (0-1); EOSINOPHILS # (AUTO) 0.7 X10'3 (0-0.9); EOSINOPHILS % (AUTO) 14.6 % (0-6); HEMATOCRIT 23.3 % (35.0-45.0); HEMOGLOBIN 7.9 g/dl (12.0-16.0); LYMPHOCYTES # (AUTO) 1.1 X10'3 (1.1-4.8); LYMPHOCYTES % (AUTO) 24.2 % (21-51); MEAN CORPUSCULAR HGB CONC 33.9 g/dL (33.0-36.5); MEAN CORPUSCULAR VOLUME 91.5 FL (78-98); MEAN PLATELET VOLUME 8.7 FL (7.4-10.4); MONOCYTES # (AUTO) 0.5 X10'3 (0-0.9); MONOCYTES % (AUTO) 10.1 % (2-12); NEUTROPHILS # (AUTO) 2.3 X10'3 (1.8-7.7); NEUTROPHILS % (AUTO) 50.5 % (42-75); PLATELET COUNT 133 X10'3 (140-440); RED BLOOD COUNT 2.55 X10'6 (4.20-5.60); WHITE BLOOD COUNT 4.6 X10'3 (4.5-11.0)
--- NOTE | 2020-11-22 07:50 | NUR ---
Paged Dr. Davidson regarding medications needing ordered. PAGER ID: [phone] MESSAGE: [facility] [id number] Osiris Grace please complete medication rec. We need to give patient her home medications. Thank you Nalini HUANG [phone]
[2020-11-22] MEDS ORDERED: simethicone 80mg chew tab PO PRN (08:00)
[2020-11-22] MEDS: docusate sod 100mg capsule PO SCH ×2 (08:04→20:32)
[2020-11-22 08:05] LABS: ANION GAP 11 (8-16); BLOOD UREA NITROGEN 20 MG/DL (7-18); BUN/CREATININE RATIO 43.5 (6.6-38.0); CALCIUM 8.7 MG/DL (8.5-10.1); CHLORIDE 104 MMOL/L (99-107); CREATININE 0.46 MG/DL (0.40-0.90); GLUCOSE 68 MG/DL (70-104); MAGNESIUM 1.9 MG/DL (1.5-2.4); POTASSIUM 3.1 MMOL/L (3.5-5.1); SODIUM 142 MMOL/L (135-145); TOTAL CARBON DIOXIDE 27.4 MMOL/L (24-32); eGFR > 90 ML/MIN
[2020-11-22 08:31] LABS: TOTAL CELLS COUNTED 100
[2020-11-22 08:32] LABS: ANISOCYTOSIS 1+; PLATELET ESTIMATE DECREASED; POLYCHROMASIA FEW
[2020-11-22 08:33] LABS: ROULEAUX 2+
[2020-11-22] MEDS: K and/or MAG REPLACEMENT MC SCH ×2 (08:50→18:48)
[2020-11-22] MEDS: clopidogrel 75mg tablet PO SCH (08:55)
[2020-11-22] MEDS: metoprolol tartrate 12.5mg (1/2 tablet) PO SCH ×2 (08:55→20:35)
[2020-11-22] MEDS: potassium Cl 40MEQ/1/2NS 520ml 520 ML IV PRN (09:49)
[2020-11-22 11:00] VITALS: BP 131/84
[2020-11-22] MEDS ORDERED: ondansetron 4mg rapidly disintigrating tab PO PRN (11:25)
[2020-11-22] MEDS: oxyCODONE/APAP 5-325mg tablet PO PRN (13:52)
[2020-11-22 14:00] VITALS: BP 132/63
--- NOTE | 2020-11-22 18:18 | NUR ---
Problems reprioritized. Patient report given, questions answered & plan of care reviewed with Jonas HUANG at bedside.
[2020-11-22 19:00] VITALS: BP 126/60
[2020-11-22] MEDS ORDERED: Melatonin 3mg tablet PO SCH (21:00)
[2020-11-22 22:00] VITALS: BP 131/58
[2020-11-23 02:00] VITALS: BP 125/60
[2020-11-23 05:55] LABS: BASOPHILS % (AUTO) 0.6 % (0-1); EOSINOPHILS # (AUTO) 0.6 X10'3 (0-0.9); HEMATOCRIT 25.3 % (35.0-45.0); HEMOGLOBIN 8.6 g/dl (12.0-16.0); LYMPHOCYTES # (AUTO) 1.1 X10'3 (1.1-4.8); LYMPHOCYTES % (AUTO) 22.1 % (21-51); MEAN CORPUSCULAR HEMOGLOBIN 30.6 PG (27.0-31.0); MEAN CORPUSCULAR VOLUME 89.9 FL (78-98); MEAN PLATELET VOLUME 8.4 FL (7.4-10.4); MONOCYTES # (AUTO) 0.5 X10'3 (0-0.9); MONOCYTES % (AUTO) 10.6 % (2-12); NEUTROPHILS # (AUTO) 2.7 X10'3 (1.8-7.7); NEUTROPHILS % (AUTO) 53.7 % (42-75); PLATELET COUNT 142 X10'3 (140-440); RED BLOOD COUNT 2.82 X10'6 (4.20-5.60); RED CELL DISTRIBUTION WIDTH 18.2 % (11.5-14.5)
[2020-11-23 06:00] VITALS: BP 148/66
[2020-11-23 06:03] LABS: ALBUMIN 2.1 G/DL (3.4-5.0); ANION GAP 9 (8-16); BLOOD UREA NITROGEN 17 MG/DL (7-18); BUN/CREATININE RATIO 32.1 (6.6-38.0); CHLORIDE 104 MMOL/L (99-107); CREATININE 0.53 MG/DL (0.40-0.90); GLUCOSE 77 MG/DL (70-104); MAGNESIUM 1.8 MG/DL (1.5-2.4); POTASSIUM 3.8 MMOL/L (3.5-5.1); SODIUM 141 MMOL/L (135-145); TOTAL CARBON DIOXIDE 28.1 MMOL/L (24-32); eGFR > 90 ML/MIN
--- NOTE | 2020-11-23 06:15 | NUR ---
Patient in room PCU 3023. I have received report from Jonas HUANG at bedside and had the opportunity to ask questions and assume patient care.
[2020-11-23] MEDS: docusate sod 100mg capsule PO SCH (08:00)
[2020-11-23] MEDS: K and/or MAG REPLACEMENT MC SCH (08:00)
[2020-11-23] MEDS: gabapentin 300mg capsule PO SCH (08:09)
[2020-11-23 08:10] VITALS: BP_SYST 132
[2020-11-23] MEDS: ziprasidone 20mg capsule PO SCH (08:10)
[2020-11-23] MEDS: metoprolol tartrate 12.5mg (1/2 tablet) PO SCH (08:10)
[2020-11-23] MEDS: venlafaxine 25mg tablet PO SCH (08:11)
[2020-11-23] MEDS: clopidogrel 75mg tablet PO SCH (08:11)
[2020-11-23] MEDS: oxyCODONE/APAP 5-325mg tablet PO PRN (08:11)
[2020-11-23] MEDS: divalproex sod 125mg tablet.DR PO SCH (08:11)
[2020-11-23] MEDS ORDERED: METO-292 PO (09:42)
--- NOTE | 2020-11-23 10:27 | NUR ---
Called Brooke RN, Nurse Director at [facility], Gave full report on patient, She verified she had received he discharge paper work. We reviewed discharge paper work and discharge education, she verbalized back all discharge information and discharge education. Reviewed new medication, Metoclopramide HC1 10 mg tablet, prescription sent to [facility], [facility]. Informed Brooke of fire supervisor time for patient is 1145 by [employer]. Brooke is aware of transportation agency [employer], as patient is transported by [employer] for all transportation needs.
--- NOTE | 2020-11-23 10:30 | NUR ---
Patient stable and comfortable for transport to [facility]. Removed Telemetry and PIV. No redness or irritation at PIV site. Discussed all discharge education and discharge education with patient. She verbalized understanding of information and education. All belongings gathered and given to patient in bag to take with her. Patient informed of brass pickler time of 1145. Transportation will be [employer].
--- NOTE | 2020-11-23 11:58 | NUR ---
Patient left facility with [employer]. All discharge infortaion and discharge education documents given to [employer] staff members to give to [facility], Merchandising Representative Brooke. Called made to [facility] that patient was on their way
== END 2020-11-23 11:58 | DRG 389 ==
LOC: ER 11:25 → ED HOLD 14:36 → EDBEDREQ 15:53 → PCU 3S 16:44
PROVIDERS: ADMIT Internal Medicine; ATTEND Internal Medicine
DX: K56.7 Ileus, unspecified (principal); J90 Pleural effusion, not elsewhere classified; I69.351 Hemiplegia and hemiparesis following cerebral infarction affecting right dominant side; E03.9 Hypothyroidism, unspecified; E87.6 Hypokalemia; F03.90 Unspecified dementia, unspecified severity, without behavioral disturbance, psychotic disturbance, mood disturbance, and anxiety; F17.210 Nicotine dependence, cigarettes, uncomplicated; Z20.822 Contact with and (suspected) exposure to COVID-19; F31.9 Bipolar disorder, unspecified; F41.9 Anxiety disorder, unspecified; I10 Essential (primary) hypertension; J44.9 Chronic obstructive pulmonary disease, unspecified; M79.7 Fibromyalgia; G47.30 Sleep apnea, unspecified; G89.29 Other chronic pain; Z88.0 Allergy status to penicillin; Z88.5 Allergy status to narcotic agent; Z88.8 Allergy status to other drugs, medicaments and biological substances; Z79.899 Other long term (current) drug therapy; Z79.02 Long term (current) use of antithrombotics/antiplatelets
CPT/HCPCS: 36415; 71045; 74176; 80048; 80053; 81001; 81025; 83605; 83690; 83735; 83880; 84145; 85007; 85008; 85025; 85610; 85730; 87040; 87070; 87081; 87088; 87635; 93005; 94640; 94760; 96361; 99285; C9803; G0378; J1885; J1940; J3480; J7030

== ENCOUNTER 2021-03-26 10:52 | Inpatient (IN) | payer MEDICARE ==
[~2021-03-26] VITALS: Ht 157.5 cm; Wt 84.4 kg
[~2021-03-26 10:52] MED LIST changes: -BUPR-344 PO; +CLON-528 PO; +DESV50TA10 PO; -DIPH25CA83 PO; -FLUO20CA39 PO; +LEVO112C4; -LEVO175T7 PO; -LOP25T PO; -LORA-269 PO; +MELA5TAB12 PO; +METO-292 PO; +METO25TA6 PO; -OLAN5TAB26 PO; -TEMA15CA5 PO; +ZIPR80CA2 PO
[2021-03-26 11:50] LABS: HEMOGLOBIN 7.7 g/dl (12.0-16.0); MEAN CORPUSCULAR VOLUME 94.8 FL (78-98); WHITE BLOOD COUNT 3.7 X10'3 (4.5-11.0)
[2021-03-26 11:52] LABS: BASOPHILS % (AUTO) 0.3 % (0-1); EOSINOPHILS # (AUTO) 0.2 X10'3 (0-0.9); EOSINOPHILS % (AUTO) 5.6 % (0-6); LYMPHOCYTES # (AUTO) 1.1 X10'3 (1.1-4.8); LYMPHOCYTES % (AUTO) 29.4 % (21-51); MEAN CORPUSCULAR HEMOGLOBIN 31.7 PG (27.0-31.0); MEAN CORPUSCULAR HGB CONC 33.5 g/dL (33.0-36.5); MONOCYTES # (AUTO) 0.5 X10'3 (0-0.9); MONOCYTES % (AUTO) 13.4 % (2-12); NEUTROPHILS # (AUTO) 1.9 X10'3 (1.8-7.7); NEUTROPHILS % (AUTO) 51.3 % (42-75); RED BLOOD COUNT 2.43 X10'6 (4.20-5.60); RED CELL DISTRIBUTION WIDTH 20.6 % (11.5-14.5)
[2021-03-26 12:03] LABS: ALANINE AMINOTRANSFERASE 21 U/L (12-78); ALBUMIN 1.1 G/DL (3.4-5.0); ALBUMIN/GLOBULIN RATIO 0.1 (1.1-1.5); ALKALINE PHOSPHATASE 136 IU/L (46-116); ANION GAP 12 (8-16); ASPARTATE AMINO TRANSFERASE 54 U/L (10-37); BILIRUBIN,TOTAL 0.4 MG/DL (0.1-1.0); BLOOD UREA NITROGEN 17 MG/DL (7-18); BUN/CREATININE RATIO 9.5 (6.6-38.0); CALCIUM 9.2 MG/DL (8.5-10.1); CHLORIDE 108 MMOL/L (99-107); CREATININE 1.79 MG/DL (0.40-0.90); GLUCOSE 80 MG/DL (70-104); POTASSIUM 4.3 MMOL/L (3.5-5.1); SODIUM 146 MMOL/L (135-145); eGFR 29 ML/MIN
[2021-03-26 12:04] LABS: CLARITY,URINE CLEAR (Clear); COLOR,URINE YELLOW (Yellow); GLUCOSE, URINE NEGATIVE (Neg); KETONES,URINE TRACE mg/dl (Neg); PROTEIN,URINE 30 mg/dl (Neg); UA COLLECTION TYPE STRAIGHT CATH
[2021-03-26 12:05] LABS: LEUKOCYTE ESTERASE ,URINE NEGATIVE (Neg); NITRITES, URINE NEGATIVE (Neg); OCCULT BLOOD,URINE NEGATIVE (Neg)
[2021-03-26 12:07] LABS: ETHANOL < 0.010 GM/DL (0.0-0.010)
[2021-03-26 12:13] LABS: URINE AMPHETAMINE SCREEN NEGATIVE (Neg); URINE BARBITUATE SCREEN NEGATIVE (Neg); URINE BENZODIAZEPINES SCREEN NEGATIVE (Neg); URINE CANNABINOID SCREEN NEGATIVE (Neg); URINE COCAINE SCREEN NEGATIVE (Neg); URINE METHADONE SCREEN NEGATIVE (Neg); URINE OPIATE SCREEN NEGATIVE (Neg); URINE PHENCYCLIDINE SCREEN NEGATIVE (Neg)
[2021-03-26 12:15] LABS: AMORPHOUS URATES 2+; BACTERIA,URINE NONE SEEN /HPF (Neg); HYALINE CASTS 0-3 /LPF (NEGATIVE); MUCUS STRANDS MODERATE /LPF (Neg); RBC,URINE 0-2 /HPF (0-2); SQUAMOUS EPITHELIAL CELL,UR FEW /LPF (FEW); WBC,URINE 0-4 /HPF (0-4)
[2021-03-26 12:20] LABS: PLATELET COUNT 50 X10'3 (140-440)
[2021-03-26 12:24] LABS: ANISOCYTOSIS 3+; NUCLEATED RED BLOOD CELLS 2 /100WBC (0-0); PLATELET ESTIMATE DECREASED; TOTAL CELLS COUNTED 100
[2021-03-26] MEDS ORDERED: normal saline 1000ml 1,000 ML IV ONE (12:25)
[2021-03-26] MEDS ORDERED: LEVO100T9 PO (14:51)
--- NOTE | 2021-03-26 15:08 | NUR ---
Patient is tearful. Difficult to understand, but is pointing to leg. Dr. Haley aware, medication ordered.
[2021-03-26] MEDS ORDERED: acetaminophen 325mg tablet PO ONE (15:10)
[2021-03-26] MEDS ORDERED: LORazepam 2 mg/ml vial IV ONE (15:10)
[2021-03-26] MEDS ORDERED: acetaminophen 650mg rectal suppository RC PRN (15:30)
--- NOTE | 2021-03-26 17:07 | NUR ---
Pt is intermittently crying but can't articulate problem. Tylenol administered for pain. Patient repositioned for comfort. Will continue to monitor.
[2021-03-26] MEDS ORDERED: acetaminophen 325mg tablet PO PRN (17:25)
[2021-03-26] MEDS ORDERED: potassium Cl 20 mEq SR tablet PO PRN ×2 (17:25)
[2021-03-26] MEDS ORDERED: magnesium 2GM in 50ml NS 50 ML IV PRN (17:25)
[2021-03-26] MEDS ORDERED: magnesium Cl slow-release 64mg tablet PO PRN (17:25)
[2021-03-26] MEDS ORDERED: potassium Cl 40MEQ/1/2NS 520ml 520 ML IV PRN ×2 (17:25)
[2021-03-26] MEDS ORDERED: magnesium 4gm in 100ml NS 100 ML IV PRN (17:25)
[2021-03-26] MEDS ORDERED: ondansetron/PF 4mg/2ml inj IV PRN (17:25)
[2021-03-26] MEDS: normal saline 1000ml 1,000 ML IV SCH (18:23)
[2021-03-26] MEDS ORDERED: simethicone 80mg chew tab PO PRN (19:25)
[2021-03-26] MEDS: K and/or MAG REPLACEMENT MC SCH (20:00)
[2021-03-26 21:00] VITALS: BP 102/52
[2021-03-26] MEDS: venlafaxine 25mg tablet PO SCH (22:04)
[2021-03-26] MEDS: divalproex sod 125mg tablet.DR PO SCH (22:05)
[2021-03-26] MEDS: metoprolol tartrate 12.5mg (1/2 tablet) PO SCH (22:06)
[2021-03-26] MEDS: gabapentin 300mg capsule PO SCH (22:07)
[2021-03-26] MEDS: clopidogrel 75mg tablet PO SCH (22:07)
[2021-03-26] MEDS: levoTHYROXINE 100mcg tablet PO SCH (22:07)
[2021-03-26] MEDS: docusate sod 100mg capsule PO SCH (22:08)
[2021-03-26] MEDS: ziprasidone 20mg capsule PO SCH (22:08)
[2021-03-27] MEDS: normal saline 1000ml 1,000 ML IV SCH ×2 (01:35→13:25)
[2021-03-27 02:30] VITALS: BP 110/57
[2021-03-27 06:00] VITALS: BP 116/61
[2021-03-27 06:09] LABS: BASOPHILS % (AUTO) 0.4 % (0-1); EOSINOPHILS # (AUTO) 0.3 X10'3 (0-0.9); LYMPHOCYTES # (AUTO) 1.4 X10'3 (1.1-4.8); MEAN CORPUSCULAR HEMOGLOBIN 32.1 PG (27.0-31.0); MONOCYTES # (AUTO) 0.6 X10'3 (0-0.9); RED CELL DISTRIBUTION WIDTH 20.1 % (11.5-14.5)
[2021-03-27 06:10] LABS: EOSINOPHILS % (AUTO) 5.5 % (0-6); LYMPHOCYTES % (AUTO) 29.6 % (21-51); MEAN CORPUSCULAR HGB CONC 33.8 g/dL (33.0-36.5); MEAN CORPUSCULAR VOLUME 95.1 FL (78-98); MEAN PLATELET VOLUME 9.4 FL (7.4-10.4); MONOCYTES % (AUTO) 13.2 % (2-12); NEUTROPHILS # (AUTO) 2.4 X10'3 (1.8-7.7); NEUTROPHILS % (AUTO) 51.3 % (42-75); RED BLOOD COUNT 2.18 X10'6 (4.20-5.60); WHITE BLOOD COUNT 4.6 X10'3 (4.5-11.0)
[2021-03-27 06:18] LABS: ALBUMIN 1.1 G/DL (3.4-5.0); ANION GAP 11 (8-16); BLOOD UREA NITROGEN 18 MG/DL (7-18); BUN/CREATININE RATIO 11.3 (6.6-38.0); CALCIUM 8.7 MG/DL (8.5-10.1); CHLORIDE 113 MMOL/L (99-107); GLUCOSE 69 MG/DL (70-104); MAGNESIUM 2.2 MG/DL (1.5-2.4); POTASSIUM 4.1 MMOL/L (3.5-5.1); SODIUM 147 MMOL/L (135-145); TOTAL CARBON DIOXIDE 23.5 MMOL/L (24-32); eGFR 33 ML/MIN
--- NOTE | 2021-03-27 06:44 | NUR ---
Problems reprioritized. Patient report given, questions answered & plan of care reviewed with SAL Dozier.
[2021-03-27 06:54] LABS: HEMATOCRIT 20.8 % (35.0-45.0); PLATELET COUNT 44 X10'3 (140-440)
[2021-03-27 07:01] LABS: TOTAL CELLS COUNTED 100
[2021-03-27 07:02] LABS: PLATELET ESTIMATE DECREASED
[2021-03-27 07:03] LABS: ANISOCYTOSIS 3+; POLYCHROMASIA 1+; ROULEAUX 2+
--- NOTE | 2021-03-27 07:03 | NUR ---
I have reviewed this skilled nursing facilities professional's, Willow Garcia, documentation and agree with all assessments and charting.
--- NOTE | 2021-03-27 07:09 | NUR ---
PAGER ID: [phone] MESSAGE: [id number] Osiris Good- Guru/Guru 7.0/20.8 Platelet 44. Tasia [phone]
--- NOTE | 2021-03-27 07:24 | NUR ---
Student Medication Administration: For this medication-pass time frame, all medication were reviewed, dispensed, administered and documented per hospital policy by Katie STERLING.
[2021-03-27] MEDS: divalproex sod 125mg tablet.DR PO SCH ×3 (08:00→21:52)
[2021-03-27] MEDS: venlafaxine 25mg tablet PO SCH ×3 (08:00→21:51)
[2021-03-27] MEDS: K and/or MAG REPLACEMENT MC SCH ×2 (08:00→20:00)
--- NOTE | 2021-03-27 08:00 | NUR ---
PAGER ID: [phone] MESSAGE: [id number] Osiris Good- Guru/Guru 7.0/20.8 ; Platelets 44,. Tasia [phone]
--- NOTE | 2021-03-27 10:00 | NUR ---
Called Kourtney Kelley to find out the patient's durable power of banking attorney is Lucrecia Quinteros [phone] as her public guardian.
[2021-03-27] MEDS: ziprasidone 20mg capsule PO SCH ×2 (10:21→21:47)
[2021-03-27] MEDS: metoprolol tartrate 12.5mg (1/2 tablet) PO SCH ×2 (10:21→21:50)
[2021-03-27] MEDS: docusate sod 100mg capsule PO SCH ×2 (10:21→21:47)
[2021-03-27] MEDS: clopidogrel 75mg tablet PO SCH (10:24)
[2021-03-27] MEDS: levoTHYROXINE 100mcg tablet PO SCH (10:24)
[2021-03-27] MEDS: gabapentin 300mg capsule PO SCH ×5 (10:24→21:53)
--- NOTE | 2021-03-27 10:50 | NUR ---
PAGER ID: [phone] MESSAGE: [id number] Osiris Good- Public guardian Lucrecia Quinteros [phone]. Ok to hold Plavix? Tasia [phone]
[2021-03-27 11:00] VITALS: BP 116/56
[2021-03-27 11:59] LABS: MEAN CORPUSCULAR HEMOGLOBIN 31.8 PG (27.0-31.0); MEAN CORPUSCULAR HGB CONC 33.2 g/dL (33.0-36.5); MEAN CORPUSCULAR VOLUME 95.6 FL (78-98); RED BLOOD COUNT 2.19 X10'6 (4.20-5.60); RED CELL DISTRIBUTION WIDTH 20.5 % (11.5-14.5); WHITE BLOOD COUNT 4.3 X10'3 (4.5-11.0)
[2021-03-27 12:03] LABS: HEMATOCRIT 20.9 % (35.0-45.0); PLATELET COUNT 44 X10'3 (140-440)
--- NOTE | 2021-03-27 12:27 | NUR ---
PAGER ID: [phone] MESSAGE: [id number] Osiris Good- H/Guru 7.0/20.9 Plt 44. Tasia [phone]
[2021-03-27] MEDS: cholecalciferol (vitamin D3) 1,000 unit (25mcg) tablet PO SCH (12:38)
[2021-03-27 15:00] VITALS: BP 136/55
--- NOTE | 2021-03-27 15:33 | NUR ---
PAGER ID: [phone] MESSAGE: [id number] Osiris Good- lungs really wheezy. No breathing treatment on order. OK to order speech eval and ensure?
[2021-03-27] MEDS ORDERED: furosemide 40mg/4ml inj IV ONE (15:50)
[2021-03-27 15:55] LABS: MEAN CORPUSCULAR HGB CONC 33.7 g/dL (33.0-36.5); MEAN CORPUSCULAR VOLUME 94.8 FL (78-98); MEAN PLATELET VOLUME 9.1 FL (7.4-10.4); PLATELET COUNT 53 X10'3 (140-440); RED BLOOD COUNT 2.16 X10'6 (4.20-5.60); RED CELL DISTRIBUTION WIDTH 20.1 % (11.5-14.5); WHITE BLOOD COUNT 5.6 X10'3 (4.5-11.0)
[2021-03-27 15:57] LABS: HEMATOCRIT 20.4 % (35.0-45.0); HEMOGLOBIN 6.9 g/dl (12.0-16.0)
--- NOTE | 2021-03-27 16:00 | NUR ---
Called Sudarshan, her public guardian, and he states they are not her conservator and cannot make medical decisions for her.
--- NOTE | 2021-03-27 16:17 | NUR ---
PAGER ID: [phone] MESSAGE: [id number] - Osiris Good- Guru/Guru 6.9 .4. Plt 53. Called the phone number for consent.. call Tasia [phone]
[2021-03-27] MEDS ORDERED: ondansetron 4mg rapidly disintigrating tab PO PRN (16:20)
[2021-03-27] MEDS: albuterol 2.5 MG/3 ML nebule NEB SCH ×3 (16:24→23:41)
--- NOTE | 2021-03-27 16:43 | NUR ---
Tried calling the brother Luciano's phone number in the SBAR, but it went to a woman name Jody's voicemail box.
--- NOTE | 2021-03-27 16:44 | NUR ---
PAGER ID: [phone] MESSAGE: [id number] Tatum Heaton states they are no longer her conservator and cannot make medical decisions. AUGUSTIN [phone]
[2021-03-27 19:00] VITALS: BP 118/56
[2021-03-27 22:00] VITALS: BP 120/60
[2021-03-28] VITALS (13 sets, daily range): BP systolic 102–134; BP diastolic 37–76
[2021-03-28] MEDS: albuterol 2.5 MG/3 ML nebule NEB SCH ×6 (03:42→23:17)
--- NOTE | 2021-03-28 06:50 | NUR ---
Problems reprioritized. Patient report given, questions answered & plan of care reviewed with PHYLLIS. Addendum: 03/28/21 at 0651 by Que Cleveland RN Amended: Links added.
[2021-03-28 07:20] LABS: MEAN CORPUSCULAR HEMOGLOBIN 32.3 PG (27.0-31.0); MONOCYTES # (AUTO) 0.7 X10'3 (0-0.9); NEUTROPHILS # (AUTO) 3.1 X10'3 (1.8-7.7); RED BLOOD COUNT 2.02 X10'6 (4.20-5.60)
[2021-03-28 07:23] LABS: BASOPHILS % (AUTO) 0.4 % (0-1); EOSINOPHILS # (AUTO) 0.2 X10'3 (0-0.9); EOSINOPHILS % (AUTO) 4.3 % (0-6); LYMPHOCYTES # (AUTO) 1.5 X10'3 (1.1-4.8); LYMPHOCYTES % (AUTO) 26.4 % (21-51); MEAN CORPUSCULAR HGB CONC 34.3 g/dL (33.0-36.5); MEAN CORPUSCULAR VOLUME 94.3 FL (78-98); MEAN PLATELET VOLUME 9.4 FL (7.4-10.4); MONOCYTES % (AUTO) 13.3 % (2-12); NEUTROPHILS % (AUTO) 55.6 % (42-75); RED CELL DISTRIBUTION WIDTH 20.6 % (11.5-14.5); WHITE BLOOD COUNT 5.6 X10'3 (4.5-11.0)
[2021-03-28] MEDS: gabapentin 300mg capsule PO SCH ×3 (07:29→21:38)
[2021-03-28] MEDS: levoTHYROXINE 100mcg tablet PO SCH (07:30)
[2021-03-28] MEDS: venlafaxine 25mg tablet PO SCH ×3 (07:30→21:39)
[2021-03-28] MEDS: ziprasidone 20mg capsule PO SCH ×2 (07:30→21:39)
[2021-03-28] MEDS: cholecalciferol (vitamin D3) 1,000 unit (25mcg) tablet PO SCH (07:30)
[2021-03-28] MEDS: divalproex sod 125mg tablet.DR PO SCH ×3 (07:32→21:38)
[2021-03-28] MEDS: docusate sod 100mg capsule PO SCH ×2 (07:32→21:39)
[2021-03-28] MEDS: metoprolol tartrate 12.5mg (1/2 tablet) PO SCH ×2 (07:45→21:39)
[2021-03-28 07:47] LABS: ANION GAP 12 (8-16); BLOOD UREA NITROGEN 18 MG/DL (7-18); BUN/CREATININE RATIO 10.8 (6.6-38.0); CALCIUM 8.6 MG/DL (8.5-10.1); CHLORIDE 112 MMOL/L (99-107); CREATININE 1.66 MG/DL (0.40-0.90); GLUCOSE 69 MG/DL (70-104); MAGNESIUM 2.1 MG/DL (1.5-2.4); POTASSIUM 3.5 MMOL/L (3.5-5.1); SODIUM 148 MMOL/L (135-145); TOTAL CARBON DIOXIDE 23.6 MMOL/L (24-32); eGFR 32 ML/MIN
[2021-03-28 07:56] LABS: HEMOGLOBIN 6.5 g/dl (12.0-16.0)
[2021-03-28 07:57] LABS: PLATELET COUNT 47 X10'3 (140-440)
[2021-03-28] MEDS: K and/or MAG REPLACEMENT MC SCH ×2 (08:00→20:00)
--- NOTE | 2021-03-28 15:28 | NUR ---
Malnutrition consult: Pt admitted w/ increasing confusion and weakness over the last 2 days per EMR. Pt current scaled wt mostly consistent w/ wts from previous admissions, though those are not scaled. No edema noted. Pt currently on MM5/HH diet per [employer] recs though has had mostly 0% intake. No visible signs of wasting noted. At this time, pt does not meet minimum criteria for malnutrition. Will recommend trial of Ensure Enlive TID though if pt also refuses ONS will consider d/c supplement. Addendum: 03/28/21 at [address] Amended: Links added.
[2021-03-28 15:58] LABS: ANISOCYTOSIS 3+; NUCLEATED RED BLOOD CELLS 1 /100WBC (0-0); PLATELET ESTIMATE DECREASED; ROULEAUX 3+; TOTAL CELLS COUNTED 100
[2021-03-28 15:59] LABS: MICROCYTOSIS 1+
[2021-03-28] MEDS: lactose-reduced food (Ensure Enlive) - 237ml bottle PO SCH (18:00)
[2021-03-28 18:21] LABS: HEMATOCRIT 22.1 % (35.0-45.0); HEMOGLOBIN 7.6 g/dl (12.0-16.0); MEAN CORPUSCULAR HEMOGLOBIN 30.5 PG (27.0-31.0); MEAN CORPUSCULAR HGB CONC 34.2 g/dL (33.0-36.5); MEAN PLATELET VOLUME 8.9 FL (7.4-10.4); RED BLOOD COUNT 2.48 X10'6 (4.20-5.60); RED CELL DISTRIBUTION WIDTH 23.9 % (11.5-14.5); WHITE BLOOD COUNT 4.6 X10'3 (4.5-11.0)
[2021-03-28 18:56] LABS: PLATELET COUNT 46 X10'3 (140-440)
--- NOTE | 2021-03-28 19:18 | NUR ---
[id number] MESSAGE: Re [id number] Osiris Good - Critical PLT count of 46. Jeannette 54
[2021-03-29] VITALS (7 sets, daily range): BP systolic 95–141; BP diastolic 43–73
[2021-03-29] MEDS: albuterol 2.5 MG/3 ML nebule NEB SCH ×6 (02:55→23:09)
[2021-03-29 04:39] LABS: ALBUMIN 1.1 G/DL (3.4-5.0); ANION GAP 12 (8-16); BLOOD UREA NITROGEN 17 MG/DL (7-18); BUN/CREATININE RATIO 10.1 (6.6-38.0); CALCIUM 8.8 MG/DL (8.5-10.1); CHLORIDE 109 MMOL/L (99-107); CREATININE 1.68 MG/DL (0.40-0.90); GLUCOSE 80 MG/DL (70-104); MAGNESIUM 1.9 MG/DL (1.5-2.4); POTASSIUM 3.8 MMOL/L (3.5-5.1); SODIUM 144 MMOL/L (135-145); TOTAL CARBON DIOXIDE 23.4 MMOL/L (24-32); eGFR 31 ML/MIN
--- NOTE | 2021-03-29 06:18 | NUR ---
Problems reprioritized. Patient report given, questions answered & plan of care reviewed with SAL Ochoa.
[2021-03-29 06:29] LABS: EOSINOPHILS # (AUTO) 0.2 X10'3 (0-0.9); EOSINOPHILS % (AUTO) 4.8 % (0-6); HEMOGLOBIN 9.3 g/dl (12.0-16.0); LYMPHOCYTES # (AUTO) 1.2 X10'3 (1.1-4.8); MONOCYTES # (AUTO) 0.5 X10'3 (0-0.9); NEUTROPHILS # (AUTO) 1.7 X10'3 (1.8-7.7)
[2021-03-29 06:31] LABS: BASOPHILS % (AUTO) 0.3 % (0-1); HEMATOCRIT 27.6 % (35.0-45.0); LYMPHOCYTES % (AUTO) 33.3 % (21-51); MEAN CORPUSCULAR HEMOGLOBIN 30.7 PG (27.0-31.0); MEAN CORPUSCULAR HGB CONC 33.7 g/dL (33.0-36.5); MEAN CORPUSCULAR VOLUME 91.2 FL (78-98); MEAN PLATELET VOLUME 9.5 FL (7.4-10.4); MONOCYTES % (AUTO) 14.6 % (2-12); RED BLOOD COUNT 3.02 X10'6 (4.20-5.60); RED CELL DISTRIBUTION WIDTH 23.4 % (11.5-14.5); WHITE BLOOD COUNT 3.5 X10'3 (4.5-11.0)
[2021-03-29 06:45] LABS: PLATELET COUNT 45 X10'3 (140-440)
[2021-03-29] MEDS: metoprolol tartrate 12.5mg (1/2 tablet) PO SCH ×2 (08:00→20:00)
[2021-03-29] MEDS: lactose-reduced food (Ensure Enlive) - 237ml bottle PO SCH ×3 (08:00→18:00)
[2021-03-29] MEDS: K and/or MAG REPLACEMENT MC SCH ×2 (08:00→20:00)
[2021-03-29] MEDS: ziprasidone 20mg capsule PO SCH ×2 (08:00→21:35)
[2021-03-29] MEDS: gabapentin 300mg capsule PO SCH ×3 (08:14→21:35)
[2021-03-29] MEDS: docusate sod 100mg capsule PO SCH ×2 (08:14→21:35)
[2021-03-29] MEDS: levoTHYROXINE 100mcg tablet PO SCH (08:14)
[2021-03-29] MEDS: cholecalciferol (vitamin D3) 1,000 unit (25mcg) tablet PO SCH (08:14)
[2021-03-29] MEDS: venlafaxine 25mg tablet PO SCH ×3 (08:14→21:34)
[2021-03-29] MEDS: divalproex sod 125mg tablet.DR PO SCH ×3 (08:15→21:34)
[2021-03-29 10:40] LABS: ANISOCYTOSIS 3+; PLATELET ESTIMATE DECREASED; TOTAL CELLS COUNTED 100
[2021-03-29 10:41] LABS: ROULEAUX 1+
[2021-03-30 02:00] VITALS: BP 112/53
[2021-03-30] MEDS: albuterol 2.5 MG/3 ML nebule NEB SCH ×3 (02:40→11:35)
--- NOTE | 2021-03-30 06:24 | NUR ---
Problems reprioritized. Patient report given, questions answered & plan of care reviewed with SAL Mccarthy.
--- NOTE | 2021-03-30 06:30 | NUR ---
Patient in room PCU 3012. I have received report from Celina HUANG and had the opportunity to ask questions and assume patient care. pt semi fowlers, chest rising and falling evenly. safety measures in place. no s/sx acute distress.
[2021-03-30 07:00] VITALS: BP 113/57
[2021-03-30] MEDS: divalproex sod 125mg tablet.DR PO SCH (07:57)
[2021-03-30] MEDS: venlafaxine 25mg tablet PO SCH (07:58)
[2021-03-30] MEDS: cholecalciferol (vitamin D3) 1,000 unit (25mcg) tablet PO SCH (07:58)
[2021-03-30] MEDS: ziprasidone 20mg capsule PO SCH (07:58)
[2021-03-30] MEDS: levoTHYROXINE 100mcg tablet PO SCH (07:58)
[2021-03-30] MEDS: gabapentin 300mg capsule PO SCH (07:58)
[2021-03-30] MEDS: docusate sod 100mg capsule PO SCH (07:58)
[2021-03-30] MEDS: metoprolol tartrate 12.5mg (1/2 tablet) PO SCH (08:00)
[2021-03-30 08:03] LABS: EOSINOPHILS # (AUTO) 0.2 X10'3 (0-0.9); LYMPHOCYTES # (AUTO) 1.4 X10'3 (1.1-4.8); NEUTROPHILS # (AUTO) 1.8 X10'3 (1.8-7.7); RED CELL DISTRIBUTION WIDTH 22.3 % (11.5-14.5); WHITE BLOOD COUNT 4.1 X10'3 (4.5-11.0)
[2021-03-30 08:06] LABS: BASOPHILS % (AUTO) 0.5 % (0-1); EOSINOPHILS % (AUTO) 5.3 % (0-6); HEMATOCRIT 23.1 % (35.0-45.0); LYMPHOCYTES % (AUTO) 34.9 % (21-51); MEAN CORPUSCULAR HEMOGLOBIN 31.2 PG (27.0-31.0); MEAN CORPUSCULAR HGB CONC 34.5 g/dL (33.0-36.5); MEAN CORPUSCULAR VOLUME 90.5 FL (78-98); MEAN PLATELET VOLUME 9.1 FL (7.4-10.4); MONOCYTES # (AUTO) 0.7 X10'3 (0-0.9); MONOCYTES % (AUTO) 16.5 % (2-12); NEUTROPHILS % (AUTO) 42.8 % (42-75); RED BLOOD COUNT 2.55 X10'6 (4.20-5.60)
[2021-03-30] MEDS: lactose-reduced food (Ensure Enlive) - 237ml bottle PO SCH (08:06)
[2021-03-30 08:10] LABS: PLATELET COUNT 48 X10'3 (140-440)
[2021-03-30 08:12] LABS: ANION GAP 8 (8-16); BLOOD UREA NITROGEN 16 MG/DL (7-18); BUN/CREATININE RATIO 10.7 (6.6-38.0); CALCIUM 8.9 MG/DL (8.5-10.1); CHLORIDE 109 MMOL/L (99-107); GLUCOSE 73 MG/DL (70-104); MAGNESIUM 2.2 MG/DL (1.5-2.4); POTASSIUM 3.6 MMOL/L (3.5-5.1); SODIUM 142 MMOL/L (135-145); TOTAL CARBON DIOXIDE 24.7 MMOL/L (24-32); eGFR 35 ML/MIN
[2021-03-30 09:33] LABS: ANISOCYTOSIS 3+; PLATELET ESTIMATE DECREASED; ROULEAUX 2+; SMUDGE CELLS FEW; TOTAL CELLS COUNTED 100
[2021-03-30 11:00] VITALS: BP 115/59
[2021-03-30] MEDS ORDERED: ALBU2.5V7 NEB (11:26)
[2021-03-30] MEDS ORDERED: PRED10TA23 PO (11:26)
--- NOTE | 2021-03-30 13:20 | NUR ---
Initial: Pt admitted w/ increasing confusion and weakness over the last 2 days per EMR. Pt w/ poor PO intake on MM5 diet w/ mostly 0-25% of meals not meeting needs. No ONS documented though per RN pt has been drinking about 75% of one this morning. D/w RN that pt may benefit from TF if PO does not improve. LBM 03/25 receiving routine colace. Will continue to monitor and make recommendations as appropriate. Recs: 1. Continue Regular diet as tolerated; encourage intake 2. Ensure Enlive TID 3. IF PO intake does not improve, consider TF using Jevit 1.2 at 50ml/hr 4. Bowel care per rx 5. Weekly wts Addendum: 03/30/21 at [address] Amended: Links added.
--- NOTE | 2021-03-30 16:08 | NUR ---
Pt stable for discharge per MD order. All discharge instructions explained to pt and copy given to assisted living facility [place]. all questions answered. new Rx escripted to [facility]. PIV discontinued. cannula intact. youth nutritional monitor discontinued. pt belongings collected, pt two person leola lifted into her personal wheelchair and rolled to the lobby and out the door where she loaded into medi van from [facility]. pt left with a smile on her face, grateful for care she received, without sob or s/sx acute distress.
== END 2021-03-30 15:40 | disposition home health service (06) | DRG 542 ==
LOC: ER 10:53 → UNDOADMIN 15:38 → ED HOLD 15:38 → EDBEDREQ 18:59 → PCU 3S 19:50
PROVIDERS: ADMIT Internal Medicine; ATTEND Internal Medicine
PROC: 30233N1 Transfusion of Nonautologous Red Blood Cells into Peripheral Vein, Percutaneous Approach (ICD-10-PCS; principal; 2021-03-28)
DX: C79.51 Secondary malignant neoplasm of bone (principal); G93.41 Metabolic encephalopathy; N17.9 Acute kidney failure, unspecified; D61.818 Other pancytopenia; J44.1 Chronic obstructive pulmonary disease with (acute) exacerbation; G81.91 Hemiplegia, unspecified affecting right dominant side; J90 Pleural effusion, not elsewhere classified; E03.9 Hypothyroidism, unspecified; F03.90 Unspecified dementia, unspecified severity, without behavioral disturbance, psychotic disturbance, mood disturbance, and anxiety; R59.0 Localized enlarged lymph nodes; Z20.822 Contact with and (suspected) exposure to COVID-19; F31.9 Bipolar disorder, unspecified; M25.551 Pain in right hip; T50.915A Adverse effect of multiple unspecified drugs, medicaments and biological substances, initial encounter; I10 Essential (primary) hypertension; M79.7 Fibromyalgia; Q66.89 Other specified congenital deformities of feet; Z86.73 Personal history of transient ischemic attack (TIA), and cerebral infarction without residual deficits; Z87.891 Personal history of nicotine dependence; Z88.0 Allergy status to penicillin; Z88.5 Allergy status to narcotic agent; Z88.8 Allergy status to other drugs, medicaments and biological substances; Z79.899 Other long term (current) drug therapy; Y92.89 Other specified places as the place of occurrence of the external cause
CPT/HCPCS: 36415; 36430; 70450; 71045; 71250; 73502; 74176; 80048; 80053; 80305; 80320; 81001; 82140; 83605; 83735; 83880; 84145; 84443; 84484; 85007; 85025; 85027; 86885; 86900; 86901; 86920; 87081; 87635; 92508; 92616; 93005; 94640; 94760; 96374; 97110; 97112; 97161; 97530; 99285; C9803; G0378; J1940; J2060; J7030; P9016

== ENCOUNTER 2021-04-11 06:11 | Day surgery (SDC) | payer MEDICARE ==
[2021-04-11] VITALS (11 sets, daily range): BP systolic 115–130; BP diastolic 56–87
[~2021-04-11] VITALS: Ht 162.6 cm; Wt 90.9 kg
[~2021-04-11 06:11] MED LIST changes: +ALBU2.5V7 NEB; -CLOP75TA34 PO; +LEVO100T9 PO; -LEVO112C4; -METO-292 PO; +PRED10TA23 PO
[2021-04-11] MEDS ORDERED: normal saline 1000ml 1,000 ML IV SCH (06:30)
[2021-04-11] MEDS ORDERED: fentaNYL/PF 50MCG/1 ML 2ML syringe ONE (08:21)
[2021-04-11] MEDS ORDERED: gelatin sponge, absorbable (Gelfoam 12-7MM) sponge TP ONE (08:21)
[2021-04-11] MEDS ORDERED: midazolam 1 mg/ML 2ml injection ONE (08:21)
== END 2021-04-11 11:45 ==
LOC: SSTAY O 06:11
PROVIDERS: ATTEND Radiology Vascular & Interventional Radiology
DX: M99.88 Other biomechanical lesions of rib cage (principal); C41.3 Malignant neoplasm of ribs, sternum and clavicle; Z88.0 Allergy status to penicillin; Z88.5 Allergy status to narcotic agent; Z88.8 Allergy status to other drugs, medicaments and biological substances; Z79.899 Other long term (current) drug therapy; Z86.73 Personal history of transient ischemic attack (TIA), and cerebral infarction without residual deficits
CPT/HCPCS: 20220; 77012; 99152; 99153; J2250; J3010